=== PATIENT | male | born 1945 | race Caucasian/White ===

== ENCOUNTER 2017-04-05 20:53 | Inpatient (IN) | payer OTHER ==
[~2017-04-05] VITALS: Ht 180.3 cm; Wt 103.5 kg
[2017-04-05 21:01] VITALS: BP 118/60; PULSE 65; RESP 20; TEMP 97.4; O2SAT 98
[2017-04-05] MEDS ORDERED: gabapentin PO (21:16)
[2017-04-05] MEDS ORDERED: PERC5TAB12 PO (21:16)
--- NOTE | 2017-04-05 21:29 | PD ---
HPI Chief Complaint: Neuro Symptoms/ Deficits Time Seen by Provider: 21:03 Travel History International Travel<30 days: No Contact w/Intl Traveler<30days: No Traveled to known affect area: No History of Present Illness HPI This is a 71-year-old male who was at a bar drinking Pepsi when he started to have shaking of his arms and tremor. He says he's never had this happen before. The symptoms are constant and lasted for about an hour and hour now improving. He did not pass out, lose his bowels or bladder or have any other symptoms. He does have severe diabetic neuropathy for which he takes Percocet and gabapentin. He has had a stroke in the past. PFSH Past Medical History Cardiac Catheterization: Yes COPD: Yes Cerebrovascular Accident: Yes Diabetes: Yes Patient Takes Glucophage: Yes (pt unsure) Hypertension: Yes Tetanus Vaccination: < 5 Years Influenza Vaccination: Yes Past Surgical History Tonsillectomy: Yes Other Surgery: Yes (vein striping) Social History Alcohol Use: No Tobacco Use: Yes Substance Use: No Allergies-Medications (Allergen,Severity, Reaction): Coded Allergies: No Known Allergies (Unverified , 04/05/17) Reported Meds & Prescriptions Reported Meds & Active Scripts Active Reported [unknown] [gabapentin] 1 Tab PO TID Percocet (Oxycodone-Acetaminophen) 5-325 mg Tab 1 Tab PO Q4H PRN Review of Systems Except as stated in HPI: all other systems reviewed are Neg Physical Exam Narrative GENERAL:Well appearing, no acute distress SKIN: Focused skin assessment warm and dry. HEAD: Atraumatic. Normocephalic. EYES: Pupils equal and round. No injection or drainage. ENT: Moist mucous membranes NECK: Trachea midline. CARDIOVASCULAR: Regular rate and rhythm. No murmur appreciated. RESPIRATORY: Clear to auscultation. Breath sounds equal bilaterally. GASTROINTESTINAL: Abdomen soft, non-tender, nondistended. MUSCULOSKELETAL: No obvious deformities. NEUROLOGICAL: Awake and alert. No obvious cranial nerve deficits. No dysarthria or aphasia. No upper or lower extremity drift. No upper extremity ataxia. Visual guerrero intact. PSYCHIATRIC: Appropriate mood and affect; insight and judgment normal. Data Data Last Documented VS Vital Signs Date Time Temp Pulse Resp B/P (MAP) Pulse Ox O2 Delivery O2 Flow Rate FiO2 04/06/17 00:30 68 18 121/68 (85) 96 Room Air 04/05/17 21:01 97.4 Orders Orders Complete Blood Count With Diff (04/05/17 21:09) Comprehensive Metabolic Panel (04/05/17 21:09) ^ Insert Iv (04/05/17 21:09) Magnesium (Mg) (04/05/17 21:09) Alcohol (Ethanol) (04/05/17 21:09) Oxycodone-Acetamin 5-325 Mg (Percocet (04/05/17 21:30) Prothrombin Time / Inr (Pt) (04/05/17 23:52) Ct Brain W/O Iv Contrast(Rout) (04/05/17 ) Sodium Chlorid 0.9% 500 Ml Inj (Ns 500 M (04/06/17 00:00) Urinalysis - C+S If Indicated (04/06/17 01:08) Admit Order (Ed Use Only) (04/06/17 01:12) Labs Laboratory Tests Test 04/05/17 21:15 04/05/17 23:59 White Blood Count 10.0 TH/MM3 Red Blood Count 4.19 MIL/MM3 Hemoglobin 12.0 GM/DL Hematocrit 35.6 % Mean Corpuscular Volume 85.0 FL Mean Corpuscular Hemoglobin 28.6 PG Mean Corpuscular Hemoglobin Concent 33.6 % Red Cell Distribution Width 15.8 % Platelet Count 174 TH/MM3 Mean Platelet Volume 9.2 FL Neutrophils (%) (Auto) 69.7 % Lymphocytes (%) (Auto) 19.1 % Monocytes (%) (Auto) 8.7 % Eosinophils (%) (Auto) 1.8 % Basophils (%) (Auto) 0.7 % Neutrophils # (Auto) 7.0 TH/MM3 Lymphocytes # (Auto) 1.9 TH/MM3 Monocytes # (Auto) 0.9 TH/MM3 Eosinophils # (Auto) 0.2 TH/MM3 Basophils # (Auto) 0.1 TH/MM3 CBC Comment DIFF FINAL Differential Comment Blood Urea Nitrogen 47 MG/DL Creatinine 2.00 MG/DL Random Glucose 87 MG/DL Total Protein 7.6 GM/DL Albumin 3.0 GM/DL Calcium Level 8.1 MG/DL Magnesium Level 2.0 MG/DL Alkaline Phosphatase 122 U/L Aspartate Amino Transf (AST/SGOT) 28 U/L Alanine Aminotransferase (ALT/SGPT) 24 U/L Total Bilirubin 0.4 MG/DL Sodium Level 138 MEQ/L Potassium Level 3.8 MEQ/L Chloride Level 104 MEQ/L Carbon Dioxide Level 27.0 MEQ/L Anion Gap 7 MEQ/L Estimat Glomerular Filtration Rate 33 ML/MIN Ethyl Alcohol Level LESS THAN 3 MG/DL Prothrombin Time 30.2 SEC Prothromb Time International Ratio 2.6 RATIO MDM Medical Decision Making Medical Screen Exam Complete: Yes Emergency Medical Condition: Yes Medical Record Reviewed: Yes (records were obtained from outside hospital demonstrating from 03/02/17 a BUN of 9 and a creatinine of 0.8) Interpretation(s) No leukocytosis Acute renal insufficiency with a BUN of 47 and a creatinine of 2 (baseline creatinine .8 from outside hospital records in February) GFR is 33 reduced from 90 on 03/02/17 Alcohols negative Urinalysis is negative for infection INR is 2.6 CT head: Remote MCA infarct with no acute intracranial hemorrhage Differential Diagnosis essential tremor, seizure, electrolyte abnormality Narrative Course This is a 71-year-old male who presents to the emergency Department with onset of a tremor about an hour prior to arrival. He has no other symptoms. He is a very poor historian. Labs are obtained which demonstrate acute renal insufficiency with a creatinine of 2 compared to 0.8 month ago. I suspect the patient is dehydrated. He was given IV hydration and will be admitted for acute kidney injury Physician Communication Physician Communication Discussed with Dr. Arreaga Diagnosis Primary Impression: CLEMENTINA (acute kidney injury) Admitting Information Admitting Physician Requests: Admit Yajiara Luu MD Apr 05, 2017 21:29
[2017-04-05] MEDS ORDERED: oxyCODONE/ACETAMINOPHEN 5 MG/325 MG TAB PO ONE (21:30)
[2017-04-05 22:02] VITALS: BP 108/56; PULSE 64; RESP 18; O2SAT 96
[2017-04-05 22:24] LABS: BASOPHIL # 0.1 TH/MM3 (0-0.2); BASOPHIL % 0.7 % (0.0-2.0); EOSINOPHIL # 0.2 TH/MM3 (0-0.4); EOSINOPHIL % 1.8 % (0.0-4.0); HEMATOCRIT 35.6 % (39.0-51.0); HEMO FLAGS DIFF FINAL; LYMPH % 19.1 % (9.0-44.0); LYMPHOCYTE # 1.9 TH/MM3 (1.0-4.8); MEAN CORPUSCULAR HEMOGLOBIN 28.6 PG (27.0-34.0); MEAN CORPUSCULAR HGB CONC 33.6 % (32.0-36.0); MONO % 8.7 % (0.0-8.0); NEUT % 69.7 % (16.0-70.0); PLATELET COUNT 174 TH/MM3 (150-450); RED BLOOD COUNT 4.19 MIL/MM3 (4.50-5.90); RED CELL DISTRIBUTION WIDTH 15.8 % (11.6-17.2)
[2017-04-05 22:42] LABS: ANION GAP 7 MEQ/L (5-15); AST (GOT) 28 U/L (15-37); BLOOD UREA NITROGEN 47 MG/DL (7-18); CHLORIDE 104 MEQ/L (98-107); GLOMERULAR FILTRATION RATE 33 ML/MIN (>89); POTASSIUM 3.8 MEQ/L (3.5-5.1); SODIUM (NA) 138 MEQ/L (136-145)
[2017-04-05 22:43] LABS: ALT (GPT) 24 U/L (12-78)
[2017-04-05 22:45] LABS: ALKALINE PHOSPHATASE 122 U/L (45-117); TOTAL BILIRUBIN ADULT 0.4 MG/DL (0.2-1.0)
[2017-04-05 22:51] LABS: ALCOHOL LESS THAN 3 MG/DL (0-5)
[2017-04-05 23:14] VITALS: BP 123/65; PULSE 63; RESP 18; O2SAT 97
[2017-04-06] VITALS (8 sets, daily range): BP systolic 108–144; BP diastolic 57–73; PULSE 62–95; RESP 18; TEMP 95.5–98.2; O2SAT 92–96
[2017-04-06] MEDS ORDERED: SODIUM CHLORID 0.9% 500 ML INJ 500 ML IV ONE
--- NOTE | 2017-04-06 00:31 | RADRPT ---
EXAM DATE/TIME: 04/06/2017 00:12 [facility] COMPARISON: No previous studies available for comparison. INDICATIONS : Tremors. RADIATION DOSE: 56.35 CTDIvol (mGy) MEDICAL HISTORY : Cerebrovascular disease. Hypertension. Diabetes mellitus type 2. SURGICAL HISTORY : None. ENCOUNTER: Initial ACUITY: 1 day PAIN SCALE: 0/10 LOCATION: cranial TECHNIQUE: Multiple contiguous axial images were obtained of the head. Using automated exposure control and adj ustment of the mA and/or kV according to patient size, radiation dose was kept as low as reasonably a chievable to obtain optimal diagnostic quality images. DICOM format image data is available electro nically for review and comparison. FINDINGS: CEREBRUM: There is a remote left middle cerebral artery distribution infarct with encephalomalacia. No acute in farct identified. POSTERIOR FOSSA: The cerebellum and brainstem are intact. The 4th ventricle is midline. The cerebellopontine angle i s unremarkable. EXTRACRANIAL: The visualized portion of the orbits is intact. SKULL: The calvaria is intact. No evidence of skull fracture. CONCLUSION: 1. Remote left MCA distribution infarct with encephalomalacia. No acute findings. Travon Al MD on April 06, 2017 at 0:27 Board Certified Radiologist. This report was verified electronically.
[2017-04-06 00:34] LABS: INTERNATIONAL NORMALIZED RATIO 2.6 RATIO; PROTHROMBIN TIME - PATIENT 30.2 SEC (9.8-11.6)
[2017-04-06] MEDS ORDERED: ACETAMINOPHEN 325 MG TAB PO PRN (01:30)
[2017-04-06] MEDS ORDERED: ACETAMINOPHEN/HYDROcodone 325 MG/5 MG TAB PO PRN (01:30)
[2017-04-06] MEDS ORDERED: SENNOSIDES 8.6 MG TAB PO PRN (01:30)
[2017-04-06] MEDS ORDERED: BISACODYL 10 MG SUPP RECTAL PRN (01:30)
[2017-04-06] MEDS ORDERED: SODIUM CHLORIDE 0.9% FLUSH 10 ML FLUSH IV FLUSH PRN (01:30)
[2017-04-06] MEDS ORDERED: MAGNESIUM HYDROXIDE SUSP 30 ML CUP PO PRN (01:30)
[2017-04-06] MEDS ORDERED: ONDANSETRON HCL 4 MG/2 ML VIAL IVP PRN (01:30)
[2017-04-06] MEDS ORDERED: LACTULOSE SYRUP 20 GM/30 ML CUP PO PRN (01:30)
--- NOTE | 2017-04-06 01:31 | HHI.HP ---
[facility] Primary Care Physician [facility] Admission Diagnosis acute renal insufficiency Diagnoses: (1) CLEMENTINA (acute kidney injury) Diagnosis: Principal (2) Tremor Diagnosis: Principal (3) Chronic anticoagulation Diagnosis: Principal Travel History International Travel<30 Days: No Contact w/Intl Traveler <30 Da: No Traveled to Known Affected Are: No History of Present Illness This is a 71-year-old male with a PMH of HTN, COPD, DM, CVA and Chronic Anticoagulation on Coumadin who was brought to the ER by EMS secondary to acute onset of bilateral upper extremity tremors. Patient is a poor historian, however states he was drinking Pepsi at a bar when he had sudden onset of bilateral upper extremity tremors, reportedly lasting approximately one hour. Tremors witnessed by EMS. No history of similar symptoms in the past. Denies any recent fever, chills or sick contacts. No lid lag, facial droop, slurred speech or weakness. Denies any history of Parkinson's. On arrival, BP 108/56, HR 64, O2 sat 98% on RA, Afebrile. CBC unremarkable except for anemia, hemoglobin 12.0. Creatinine 2.00, no previous records in our system, however records from from 3wks ago w/ Creatinine 0.8. INR 2.6. Alcohol is negative. CT Head with remote left MCA infarct and encephalomalacia, no acute findings. Tremor currently resolved. Review of Systems Except as stated in HPI: all other systems reviewed are Neg ROS: 14 point review of systems otherwise negative. Past Family Social History Past Medical History PMH: HTN, COPD, DM, CVA and Chronic Anticoagulation on Coumadin Past Surgical History PAST SURGICAL HISTORY: Tonsillectomy, Vein Stripping Allergies: Coded Allergies: No Known Allergies (Unverified , 04/05/17) Family History PAST FAMILY HISTORY: Reviewed. No h/o DM or CAD Social History PAST SOCIAL HISTORY: Negative for alcohol or drugs. Positive for tobacco. Physical Exam Vital Signs Vital Signs Date Time Temp Pulse Resp B/P (MAP) Pulse Ox O2 Delivery O2 Flow Rate FiO2 04/05/17 23:14 63 18 123/65 (84) 97 Room Air 04/05/17 22:02 64 18 108/56 (73) 96 Room Air 04/05/17 21:01 97.4 65 20 118/60 (79) 98 Physical Exam PE: GENERAL: Elderly white male in no acute distress. HEENT: PERRLA, EOMI. No scleral icterus or conjunctival pallor. No lid lag or facial droop. CARDIOVASCULAR: Regular rate and rhythm. No obvious murmurs to auscultation. No chest tenderness to palpation. RESPIRATORY: No obvious rhonchi or wheezing. Clear to auscultation. Breath sounds equal bilaterally. GASTROINTESTINAL: Abdomen soft, non-tender, nondistended. BS normal. MUSCULOSKELETAL: Extremities without clubbing, cyanosis, or edema. No obvious deformities. NEUROLOGICAL: Awake, alert and oriented x4. No focal neurologic deficits. Moving both upper and lower extremities spontaneously. Laboratory Laboratory Tests Test 04/05/17 21:15 04/05/17 23:59 White Blood Count 10.0 Red Blood Count 4.19 Hemoglobin 12.0 Hematocrit 35.6 Mean Corpuscular Volume 85.0 Mean Corpuscular Hemoglobin 28.6 Mean Corpuscular Hemoglobin Concent 33.6 Red Cell Distribution Width 15.8 Platelet Count 174 Mean Platelet Volume 9.2 Neutrophils (%) (Auto) 69.7 Lymphocytes (%) (Auto) 19.1 Monocytes (%) (Auto) 8.7 Eosinophils (%) (Auto) 1.8 Basophils (%) (Auto) 0.7 Neutrophils # (Auto) 7.0 Lymphocytes # (Auto) 1.9 Monocytes # (Auto) 0.9 Eosinophils # (Auto) 0.2 Basophils # (Auto) 0.1 CBC Comment DIFF FINAL Differential Comment Blood Urea Nitrogen 47 Creatinine 2.00 Random Glucose 87 Total Protein 7.6 Albumin 3.0 Calcium Level 8.1 Magnesium Level 2.0 Alkaline Phosphatase 122 Aspartate Amino Transf (AST/SGOT) 28 Alanine Aminotransferase (ALT/SGPT) 24 Total Bilirubin 0.4 Sodium Level 138 Potassium Level 3.8 Chloride Level 104 Carbon Dioxide Level 27.0 Anion Gap 7 Estimat Glomerular Filtration Rate 33 Ethyl Alcohol Level LESS THAN 3 Prothrombin Time 30.2 Prothromb Time International Ratio 2.6 Result Diagram: 04/05/17211404/05/172114 Caprini VTE Risk Assessment Caprini VTE Risk Assessment: Mod/High Risk (score >= 2) Caprini Risk Assessment Model Point Value = 1 Point Value = 2 Point Value = 3 Point Value = 5 Age 41-60 Minor surgery BMI > 25 kg/m2 Swollen legs Varicose veins or History of unexplained or recurrent spontaneous Oral contraceptives or hormone replacement Sepsis (< 1 month) Serious lung disease, including pneumonia (< 1 month) Abnormal pulmonary function Acute myocardial infarction Congestive heart failure (< 1 month) History of inflammatory bowel disease Medical patient at bed rest Age 61-74 Arthroscopic surgery Major open surgery (> 45 min) Laparoscopic surgery (> 45 min) Malignancy Confined to bed (> 72 hours) Immobilizing plaster cast Central venous access Age >= 75 History of VTE Family history of VTE Factor V Leiden Prothrombin [id number] Lupus anticoagulant Anticardiolipin antibodies Elevated serum homocysteine Heparin-induced thrombocytopenia Other congenital or acquired thrombophilia Stroke (< 1 month) Elective arthroplasty Hip, pelvis, or leg fracture Acute spinal cord injury (< 1 month) Prophylaxis Regimen Total Risk Factor Score Risk Level Prophylaxis Regimen 0-1 Low Early ambulation 2 Moderate Order ONE of the following: *Sequential Compression Device (SCD) *Heparin 5000 units SQ BID 3-4 Higher Order ONE of the following medications: *Heparin 5000 units SQ TID *Enoxaparin/Lovenox 40 mg SQ daily (WT < 150 kg, CrCl > 30 mL/min) *Enoxaparin/Lovenox 30 mg SQ daily (WT < 150 kg, CrCl > 10-29 mL/min) *Enoxaparin/Lovenox 30 mg SQ BID (WT < 150 kg, CrCl > 30 mL/min) AND/OR *Sequential Compression Device (SCD) 5 or more Highest Order ONE of the following medications: *Heparin 5000 units SQ TID (Preferred with Epidurals) *Enoxaparin/Lovenox 40 mg SQ daily (WT < 150 kg, CrCl > 30 mL/min) *Enoxaparin/Lovenox 30 mg SQ daily (WT < 150 kg, CrCl > 10-29 mL/min) *Enoxaparin/Lovenox 30 mg SQ BID (WT < 150 kg, CrCl > 30 mL/min) AND *Sequential Compression Device (SCD) Assessment and Plan Problem List: (1) CLEMENTINA (acute kidney injury) ICD Code: N17.9 - Acute kidney failure, unspecified (2) Tremor ICD Code: R25.1 - Tremor, unspecified (3) Chronic anticoagulation ICD Code: Z79.01 - [facility] (current) use of anticoagulants Assessment and Plan A/P: 1. CLEMENTINA: Creatinine 2.0, previous records from approx 3wks ago w/ Creatinine 0.8. Check U/a, IVF for hydration, repeat labs in am. 2. Tremor: Now resolved. Possibly physiologic tremor exacerbated by caffeine/ nicotine intake? Will monitor. Neuro checks. Propranolol if needed, Consult Neurology if symptoms recurrent. 3. Chronic Anticoagulation: On Coumadin, presumably secondary to h/o CVA. INR therapeutic at 2.6. Repeat INR in am. 4. DVT Prophylaxis: On Coumadin 5. Social work for d/c planning as needed. 6. Case discussed w/ ER physician at length. Physician Certification 2 Midnight Certification Type: Admission for Inpatient Services Order for Inpatient Services The services are ordered in accordance with Medicare regulations or non- Medicare payer requirements, as applicable. In the case of services not specified as inpatient-only, they are appropriately provided as inpatient services in accordance with the 2-midnight benchmark. Estimated LOS (days): 2 days is the estimated time the patient will need to remain in the hospital, assuming treatment plan goals are met and no additional complications. Post-Hospital Plan: Not yet determined Keri Dick MD Apr 06, 2017 01:31
[2017-04-06] MEDS: SODIUM CHLOR 0.9% 1000 ML INJ 1,000 ML IV SCH ×3 (01:46→21:16)
[2017-04-06 02:16] LABS: BLOOD, URINE NEG (NEG); COMMENT (UR) CULT NOT INDICATED; CULTURE IF INDICATED CULT NOT INDICATED; GLUCOSE,URINE NEG (NEG); HYALINE CAST, URINE 43 /lpf (RARE); KETONE, URINE NEG (NEG); MUCUS URINE FEW /lpf (OCC); NITRITE,URINE NEG (NEG); PH, URINE 5.5 (5.0-8.5); URINE COLOR YELLOW (YELLW/STRAW)
--- NOTE | 2017-04-06 02:23 | RADRPT ---
EXAM DATE/TIME: 04/06/2017 01:58 [facility] COMPARISON: No previous studies available for comparison. INDICATIONS : Chest pain and weakness MEDICAL HISTORY : Chronic obstructive pulmonary disease. Hypertension TIA SURGICAL HISTORY : Tonsillectomy. ENCOUNTER: Initial ACUITY: 1 day PAIN SCORE: 6/10 LOCATION: Bilateral chest FINDINGS: There is mild cardiomegaly. Minimal basilar atelectasis. No consolidation or effusion. No pneumothora x. No acute bony abnormality. CONCLUSION: 1. Cardiomegaly with minimal basilar atelectasis. Travon Al MD on April 06, 2017 at 2:20 Board Certified Radiologist. This report was verified electronically.
[2017-04-06] MEDS: ACETAMINOPHEN/HYDROcodone 325 MG/10 MG TAB PO PRN ×4 (03:13→21:20)
[2017-04-06] MEDS: DOCUSATE SODIUM 50 MG/SENNA 8.6 MG TAB PO SCH ×2 (09:51→21:00)
[2017-04-06] MEDS: SODIUM CHLORIDE 0.9% FLUSH 10 ML FLUSH IV FLUSH SCH ×2 (09:52→21:20)
--- NOTE | 2017-04-06 11:40 | EKG ---
Date Performed: 04/05/2017 Time Performed: 21:02:51 PTAGE: 71 years EKG: Sinus rhythm RIGHT BUNDLE BRANCH BLOCK LEFT ANTERIOR FASCICULAR BLOCK ABNORMAL ECG NO PREVIOUS TRACING DOCTOR: Michael Lee Interpretating Date/Time 04/06/2017 11:37:53
[2017-04-06] MEDS ORDERED: Vancomycin Consult Pharmacy 1 EA OTHER SCH (13:45)
[2017-04-06] MEDS: PIPERACIL-TAZO 3.375 GM PREMIX 50 ML IV SCH ×2 (17:25→21:20)
--- NOTE | 2017-04-06 17:31 | RADRPT ---
EXAM DATE/TIME: 04/06/2017 16:59 [facility] COMPARISON: No previous studies available for comparison. INDICATIONS : Right foot pain and inflammation. MEDICAL HISTORY : Cerebrovascular disease. Hypertension. Diabetes mellitus type 2. SURGICAL HISTORY : None. ENCOUNTER: Initial ACUITY: 1 day PAIN SCORE: 5/10 LOCATION: Right foot. FINDINGS: Diffuse severe osteopenia. There is deformity of the tarsal/metatarsal row with bony hypertrophy, mu ltiple areas of fusion and some mild dorsal dislocation of the metatarsals with respect to the proxim al tarsal row. There also healed fractures of the distal 3rd metatarsals, midshaft of the 5th metata rsus and proximal metaphysis of the 2nd and 4th proximal phalanges. There is loss of the midfoot arc h. Large plantar calcaneal spur. Vascular calcifications. CONCLUSION: Midfoot deformities with multiple osseous lesions and multiple healed fractures. No focal areas of b desiree destruction and no definite acute findings. Rodolfo Apple MD on April 06, 2017 at 17:28 Board Certified Radiologist. This report was verified electronically.
--- NOTE | 2017-04-06 17:38 | PD.ID.CON ---
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 No h/o DM or CAD Social History Negative for drugs. Positive for tobacco. Quit ETOH recently Physical Exam Vital Signs Vital Signs Date Time Temp Pulse Resp B/P (MAP) Pulse Ox O2 Delivery O2 Flow Rate FiO2 04/06/17 11:19 95.7 64 18 121/68 (85) 93 04/06/17 07:35 98.2 95 18 108/57 (74) 93 04/06/17 03:00 95.6 63 18 123/70 (87) 92 04/06/17 02:13 68 18 138/69 (92) 94 04/06/17 02:08 Room Air 04/06/17 01:35 62 18 115/61 (79) 96 04/06/17 00:30 68 18 121/68 (85) 96 Room Air 04/05/17 23:14 63 18 123/65 (84) 97 Room Air 04/05/17 22:02 64 18 108/56 (73) 96 Room Air 04/05/17 21:01 97.4 65 20 118/60 (79) 98 Physical Exam CONSTITUTIONAL/GENERAL: This is an obese ulcerly patient, in no apparent distress. TUBES/LINES/DRAINS: SKIN: No jaundice, rashes, or lesions. . Skin temperature appropriate. Not diaphoretic. HEAD: Atraumatic. Normocephalic. EYES: Pupils equal and round and reactive. Extraocular motions intact. No scleral icterus. No injection or drainage. Fundi not examined. ENT: Hearing grossly normal. Nose without bleeding or purulent drainage. Throat without visible erythema, exudates, masses, or lesions. NECK: Trachea midline. Supple, nontender. CARDIOVASCULAR: Regular rate and rhythm without murmurs, gallops, or rubs. No JVD. Peripheral pulses symmetric. RESPIRATORY/CHEST: Symmetric, unlabored respirations. Clear to auscultation. Breath sounds equal bilaterally. No wheezes, rales, or rhonchi. GASTROINTESTINAL: Abdomen soft, non-tender, distended. No hepato-splenomegaly, or palpable masses. No guarding. Bowel sounds present. GENITOURINARY: Without palpable bladder distension. MUSCULOSKELETAL: Extremities without clubbing, cyanosis, + L foot edematous with rocker bottom deformity + planatr ulcer with odorless small amount serous drainage No joint tenderness or effusion noted. No calf tenderness. No mottling or clubbing. LYMPHATICS: No inguinal or supraclavicular adenopathy. NEUROLOGICAL: Awake and alert. Motor and sensory grossly within normal limits. Follows commands. Clear speech Moves all extremities. No tremors PSYCHIATRIC: No obvious anxiety/depression. no apparent hallucinations or other psychotic thought process. Laboratory Laboratory Tests Test 04/05/17 21:15 04/05/17 23:59 04/06/17 01:38 04/06/17 01:45 White Blood Count 10.0 Red Blood Count 4.19 Hemoglobin 12.0 Hematocrit 35.6 Mean Corpuscular Volume 85.0 Mean Corpuscular Hemoglobin 28.6 Mean Corpuscular Hemoglobin Concent 33.6 Red Cell Distribution Width 15.8 Platelet Count 174 Mean Platelet Volume 9.2 Neutrophils (%) (Auto) 69.7 Lymphocytes (%) (Auto) 19.1 Monocytes (%) (Auto) 8.7 Eosinophils (%) (Auto) 1.8 Basophils (%) (Auto) 0.7 Neutrophils # (Auto) 7.0 Lymphocytes # (Auto) 1.9 Monocytes # (Auto) 0.9 Eosinophils # (Auto) 0.2 Basophils # (Auto) 0.1 CBC Comment DIFF FINAL Differential Comment Blood Urea Nitrogen 47 Creatinine 2.00 Random Glucose 87 Total Protein 7.6 Albumin 3.0 Calcium Level 8.1 Magnesium Level 2.0 Alkaline Phosphatase 122 Aspartate Amino Transf (AST/SGOT) 28 Alanine Aminotransferase (ALT/SGPT) 24 Total Bilirubin 0.4 Sodium Level 138 Potassium Level 3.8 Chloride Level 104 Carbon Dioxide Level 27.0 Anion Gap 7 Estimat Glomerular Filtration Rate 33 Ethyl Alcohol Level LESS THAN 3 Prothrombin Time 30.2 Prothromb Time International Ratio 2.6 Urine Color YELLOW Urine Turbidity CLEAR Urine pH 5.5 Urine Specific [place] 1.022 Urine Protein 100 Urine Glucose (UA) NEG Urine Ketones NEG Urine Occult Blood NEG Urine Nitrite NEG Urine Bilirubin NEG Urine Urobilinogen 2.0 Urine Leukocyte Esterase NEG Urine RBC 1 Urine WBC 1 Urine Hyaline Casts 43 Urine Mucus FEW Microscopic Urinalysis Comment CULT NOT INDICATED B-Type Natriuretic Peptide 59 Result Diagram: 04/05/17211404/05/172114 Imaging Last Impressions Chest X-Ray 04/06/17 0000 Signed Impressions: Service Date/Time: Thursday, April 06, 2017 01:58 - CONCLUSION: 1. Cardiomegaly with minimal basilar atelectasis. Travon Al MD Head CT 04/05/17 0000 Signed Impressions: Service Date/Time: Thursday, April 06, 2017 00:12 - CONCLUSION: 1. Remote left MCA distribution infarct with encephalomalacia. No acute findings. Travon Al MD Assessment and Plan Assessment and Plan R foot DFI vs Scharko ulcer DM Heavy tobacco rec's: cont abx foot MRI agree with podiatry consult Discussed Condition With Dr Dorene Villa,Julia Khalil MD Apr 06, 2017 17:38
[2017-04-06] MEDS: VANCOMYCIN INJ 1,500 MG in SODIUM CHLORID 0.9% 500 ML INJ 500 ML IV SCH (19:35)
[2017-04-06 21:40] LABS: BASOPHIL % 0.6 % (0.0-2.0); EOSINOPHIL # 0.2 TH/MM3 (0-0.4); EOSINOPHIL % 2.4 % (0.0-4.0); HEMATOCRIT 33.3 % (39.0-51.0); HEMO FLAGS DIFF FINAL; LYMPHOCYTE # 0.9 TH/MM3 (1.0-4.8); MEAN CELL VOLUME 84.4 FL (80.0-100.0); MEAN CORPUSCULAR HEMOGLOBIN 28.8 PG (27.0-34.0); MEAN CORPUSCULAR HGB CONC 34.1 % (32.0-36.0); MONO % 8.7 % (0.0-8.0); NEUT % 74.3 % (16.0-70.0); PLATELET COUNT 141 TH/MM3 (150-450); RED BLOOD COUNT 3.95 MIL/MM3 (4.50-5.90); RED CELL DISTRIBUTION WIDTH 15.2 % (11.6-17.2); WHITE BLOOD COUNT 6.7 TH/MM3 (4.0-11.0)
[2017-04-06 22:09] LABS: BICARBONATE 25.6 MEQ/L (21.0-32.0); POTASSIUM 4.5 MEQ/L (3.5-5.1); WESTERGREN SEDIMENTATION RATE 48 mm/hr (0-20)
[2017-04-06] MEDS ORDERED: DEXTROSE 50% IN WATER 50 ML VIAL(D50) IV PUSH PRN (23:15)
[2017-04-06] MEDS ORDERED: GLUCAGON 1 MG/ML VIAL OTHER PRN (23:15)
[2017-04-07] VITALS: BP 150/77; PULSE 69; RESP 18; TEMP 96.1; O2SAT 94
[2017-04-07] MEDS ORDERED: ZOLPIDEM TARTRATE 5 MG TAB PO ONE (00:30)
[2017-04-07] MEDS: SODIUM CHLOR 0.9% 1000 ML INJ 1,000 ML IV SCH ×2 (00:47→16:28)
[2017-04-07] MEDS: PIPERACIL-TAZO 3.375 GM PREMIX 50 ML IV SCH ×2 (03:05→09:29)
[2017-04-07 04:00] VITALS: BP 149/77; PULSE 91; RESP 18; TEMP 96.3; O2SAT 93
[2017-04-07] MEDS: VANCOMYCIN INJ 1,500 MG in SODIUM CHLORID 0.9% 500 ML INJ 500 ML IV SCH (04:58)
[2017-04-07] MEDS: ACETAMINOPHEN/HYDROcodone 325 MG/10 MG TAB PO PRN ×4 (05:00→21:26)
[2017-04-07 06:37] LABS: INTERNATIONAL NORMALIZED RATIO 2.1 RATIO; PROTHROMBIN TIME - PATIENT 23.9 SEC (9.8-11.6)
[2017-04-07 06:47] LABS: ANION GAP 3 MEQ/L (5-15); AST (GOT) 25 U/L (15-37); BICARBONATE 27.6 MEQ/L (21.0-32.0); BLOOD UREA NITROGEN 19 MG/DL (7-18); CHLORIDE 109 MEQ/L (98-107); GLOMERULAR FILTRATION RATE 69 ML/MIN (>89); POTASSIUM 3.9 MEQ/L (3.5-5.1); SODIUM (NA) 140 MEQ/L (136-145)
[2017-04-07 06:50] LABS: ALKALINE PHOSPHATASE 115 U/L (45-117); ALT (GPT) 24 U/L (12-78); TOTAL BILIRUBIN ADULT 0.5 MG/DL (0.2-1.0)
[2017-04-07 06:52] LABS: AUTOMATED NEUTROPHIL # 4.3 TH/MM3 (1.8-7.7); BASOPHIL # 0.1 TH/MM3 (0-0.2); BASOPHIL % 0.9 % (0.0-2.0); EOSINOPHIL # 0.2 TH/MM3 (0-0.4); EOSINOPHIL % 3.2 % (0.0-4.0); HEMATOCRIT 35.3 % (39.0-51.0); HEMO FLAGS DIFF FINAL; LYMPH % 19.2 % (9.0-44.0); LYMPHOCYTE # 1.2 TH/MM3 (1.0-4.8); MEAN CELL VOLUME 84.5 FL (80.0-100.0); MEAN CORPUSCULAR HEMOGLOBIN 28.9 PG (27.0-34.0); MEAN CORPUSCULAR HGB CONC 34.1 % (32.0-36.0); MONO % 8.5 % (0.0-8.0); NEUT % 68.2 % (16.0-70.0); PLATELET COUNT 133 TH/MM3 (150-450); RED BLOOD COUNT 4.18 MIL/MM3 (4.50-5.90); RED CELL DISTRIBUTION WIDTH 15.3 % (11.6-17.2); WHITE BLOOD COUNT 6.3 TH/MM3 (4.0-11.0)
[2017-04-07 07:35] VITALS: BP 156/74; PULSE 74; RESP 18; TEMP 95.6; O2SAT 93
[2017-04-07] MEDS ORDERED: GADODIAMIDE PF 287 MG/ML 20 ML VIAL (for RAD MRI) IVCONTRAST ONE (08:34)
--- NOTE | 2017-04-07 09:18 | RADRPT ---
EXAM DATE/TIME: 04/07/2017 08:18 [facility] COMPARISON: FOOT RIGHT COMPLETE ([id number]), April 06, 2017, 16:59. INDICATIONS : Pain and swelling with wound to right foot. CONTRAST: 20 cc Omniscan (gadodiamide) IV MEDICAL HISTORY : Renal insufficiency. Hypertension. Diabetes mellitus type 2. CVA SURGICAL HISTORY : Tonsillectomy. Bilateral hip replacements. Cardiac stents. ENCOUNTER: Initial ACUITY: 2 day PAIN SCORE: 3/10 LOCATION: Right foot. TECHNIQUE: Multiplanar, multisequence MRI examination was performed without contrast and after the intravenous a dministration of gadolinium. FINDINGS: BONE/CARTILAGE: There is marrow edema identified within the base of the first digit proximal phalanx there are fractu re lines identified on the T1 nonfat suppressed sequence extending to the MTP joint. There is preserv ed fatty marrow identified within the proximal phalanx. This area does demonstrate enhancement after the administration of contrast the remainder of the marrow demonstrates normal signal. TENDONS: All of the visualized tendons are intact. MISCELLANEOUS: Plantar aponeurosis is intact. Sinus tarsi is within normal limits. Diffuse subcutaneous edema. Ther e is a focal area of low T1 and T2 signal identified along the plantar aspect of the midfoot at the b ase of the metatarsals. No abnormal enhancement within this region. There is diffuse edema identified throughout the subcutaneous soft tissues. POST-CONTRAST: Focal enhancement identified within the region of fracture involving the first digit base of the prox imal phalanx. CONCLUSION: Focal marrow edema and enhancement involving the first digit a sub-proximal phalanx at the site of an acute fracture. No findings are seen to suggest osteomyelitis.. Tanya Funes MD on April 07, 2017 at 9:07 Board Certified Radiologist. This report was verified electronically.
[2017-04-07] MEDS: DOCUSATE SODIUM 50 MG/SENNA 8.6 MG TAB PO SCH ×3 (09:27→21:26)
[2017-04-07] MEDS: INSULIN ASPART SUPPLEMENTAL SCALE SQ SCH ×4 (09:27→21:26)
[2017-04-07] MEDS: SODIUM CHLORIDE 0.9% FLUSH 10 ML FLUSH IV FLUSH SCH ×2 (09:29→21:28)
--- NOTE | 2017-04-07 10:28 | HHI.PR ---
Addendum to Inpatient Note Additional Information MRI negative Gstain neg Pt is afebrile with neg clx dc abx Julia Villa MD Apr 07, 2017 10:28
[2017-04-07 11:18] VITALS: BP 153/76; PULSE 83; RESP 18; TEMP 96.2; O2SAT 93
--- NOTE | 2017-04-07 11:23 | MB ---
cc: ANNA JESUS DPM DATE OF CONSULTATION: 04/07/2017 DATE OF : 1945 REASON FOR CONSULTATION Right foot wound. HISTORY OF PRESENT ILLNESS: The patient is very pleasant 71-year-old gentleman with past medical history of hypertension, COPD, DM, CVA, and PVD. He has a right foot wound for approximately three weeks of unknown etiology, has not been treating it. He sees a physician once every six months. REVIEW OF SYSTEMS Denies nausea, vomiting, fever, diarrhea or chills. PAST MEDICAL HISTORY: Per HPI. PAST SURGICAL HISTORY Tonsillectomy, vein stripping. ALLERGIES NKDA. SOCIAL HISTORY Positive tobacco. Negative for alcohol or drugs. PHYSICAL EXAMINATION Right foot swollen. There is a plantar redness, erythema. There is no active drainage. There is some serous drainage. Plantar mid foot ulceration with fibrotic lesion 1 x 2 cm. No exposed bone or tendon. There is some mid foot collapse, a rocker bottom type foot. DP and PT diminished. Foot is warm to warm proximal to distal, protective sensation grossly diminished. Right foot x-ray with midfoot arthritis and rocker bottom, no cortical erosions noted. This was completed on 04/06/2017. MRI completed 04/07/2017 without any areas of abscess or effusion. ASSESSMENT/PLAN 1. Neuropathy with diabetes 2. Charcot foot. 3. Right plantar mid foot ulcer secondary to a Charcot and diabetic neuropathy. RECOMMENDATIONS The recommendation for this patient is to get some blood flow studies. If they are within normal limits he can be discharged and follow up with Dr. Jesus within one week of discharge. He needed to be offloaded in a walking boot and have some wound care carried out daily for him by home health care. This wound care can include Santyl with dry sterile dressings. He will likely need to update his diabetic shoes with additional molds. This can be done as an outpatient. Thank you for the kind consult. Anna Jesus DPM SR/RONN /10:31 AM /10:53 AM
[2017-04-07 16:00] VITALS: BP 160/82; PULSE 104; RESP 18; TEMP 97.5; O2SAT 94
[2017-04-07 20:56] VITALS: BP 160/82; PULSE 65; RESP 18; TEMP 96.7; O2SAT 96
--- NOTE | 2017-04-07 21:27 | HHI.PR ---
Subjective Remarks Patient seen today around 1 PM. He says that pain is controlled. No tremors. Objective Vital Signs Date Time Temp Pulse Resp B/P (MAP) Pulse Ox O2 Delivery O2 Flow Rate FiO2 04/07/17 16:00 97.5 104 18 160/82 (108) 94 04/07/17 11:18 96.2 83 18 153/76 (101) 93 04/07/17 09:52 Room Air 04/07/17 07:35 95.6 74 18 156/74 (101) 93 04/07/17 04:00 96.3 91 18 149/77 (101) 93 04/07/17 00:00 96.1 69 18 150/77 (101) 94 I/O 04/06/17 04/06/17 04/06/17 04/07/17 04/07/17 04/07/17 07:00 15:00 23:00 07:00 15:00 23:00 Intake Total 1162 ml 720 ml 1335 ml 930 ml 770 ml Output Total 150 ml 275 ml 950 ml 1500 ml Balance 1012 ml 445 ml 385 ml -570 ml 770 ml Intake Oral 240 ml 720 ml 720 ml 480 ml 720 ml IV Total 922 ml 615 ml 450 ml 50 ml Output Urine Total 150 ml 275 ml 950 ml 1500 ml # Voids 4 3 # Bowel Movements 0 0 1 0 1 Result Diagram: 04/07/17 0600 04/07/17 0605 Objective Remarks GENERAL: patient sitting up in bed. Appears comfortable. SKIN: Warm and dry. HEAD: Normocephalic. EYES: No scleral icterus. No injection or drainage. NECK: Supple, trachea midline. No JVD. CARDIOVASCULAR: Regular rate and rhythm without murmurs, gallops, or rubs. RESPIRATORY: Breath sounds equal bilaterally. No accessory muscle use. GASTROINTESTINAL: Abdomen soft, non-tender, nondistended. MUSCULOSKELETAL: No cyanosis, or edema. right foot in boot. BACK: Nontender without obvious deformity. No CVA tenderness. A/P Assessment and Plan ==== 04/07/17 //Right foot diabetic foot ulcer. Discussed with infectious disease. Gram stain negative. This continue antibiotics. Arterial study ordered by podiatry. Can discharge if negative. Follow-up arterial study. //Acute kidney injury resolved. Creatinine 1.06. // [place]: Creatinine 2.0, previous records from approx 3wks ago w/ Creatinine 0.8. Check U/a, IVF for hydration, repeat labs in am. = Resolved. Creatinine 1.06. // Tremor: Now resolved. Possibly physiologic tremor exacerbated by caffeine/ nicotine intake? Will monitor. Neuro checks. Propranolol if needed, Consult Neurology if symptoms recurrent. // Chronic Anticoagulation: On Coumadin, presumably secondary to h/o CVA. INR therapeutic at 2.6. Repeat INR in am. //Right foot diabetic foot ulcer. Discussed with infectious disease. Gram stain negative. This continue antibiotics. Arterial study ordered by podiatry. Can discharge if negative. MRI with bone edema, fracture, however no absolute indication of osteomyelitis. Follow-up arterial study. // DVT Prophylaxis: On Coumadin Discharge Planning pending arterial study.discharge when cleared by podiatry. Margarito Moeller MD Apr 07, 2017 21:27
[2017-04-08] MEDS ORDERED: ZOLPIDEM TARTRATE 5 MG TAB PO ONE ×2 (00:15→20:45)
[2017-04-08 00:25] VITALS: BP 137/61; PULSE 64; RESP 18; TEMP 97; O2SAT 95
[2017-04-08] MEDS: ACETAMINOPHEN/HYDROcodone 325 MG/10 MG TAB PO PRN ×4 (01:26→22:50)
[2017-04-08] MEDS: SODIUM CHLOR 0.9% 1000 ML INJ 1,000 ML IV SCH ×3 (03:16→23:16)
[2017-04-08 04:30] VITALS: BP 161/80; PULSE 86; RESP 18; TEMP 96.9; O2SAT 95
--- NOTE | 2017-04-08 08:06 | RADRPT ---
EXAM DATE/TIME: 04/07/2017 00:00 [facility] COMPARISON: No previous studies available for comparison. INDICATIONS : Right foot wound TECHNIQUE: Five-station segmental examination of the lower extremities was performed. Pulsed-cuff waveform tracings and pressures were recorded. Ankle-brachial indices and toe-brachial indices were calculated. PRESSURES (mmHg): Brachial (arm): Left 143 Lower Thigh: Right CNO >200 Left CNO >200 Calf: Right 83 Left CNO >200 Ankle: Right 140 Left CNO >220 Toe: Right N/A Left 63 MOISES: Right 0.98 Left N/A TBI: Right N/A Left 0.44 PULSED CUFF WAVEFORMS: Demonstrate normal amplitude bilaterally. CONCLUSION: 1. Nondiagnostic evaluation secondary densely calcified vessels. CT angiography of the abdominal aort a and lower extremities is recommended for further evaluation if clinically indicated. Roberto Durant MD on April 08, 2017 at 8:04 Board Certified Radiologist. This report was verified electronically.
[2017-04-08] MEDS: INSULIN ASPART SUPPLEMENTAL SCALE SQ SCH ×4 (08:51→21:00)
[2017-04-08] MEDS: SODIUM CHLORIDE 0.9% FLUSH 10 ML FLUSH IV FLUSH SCH ×2 (08:52→21:00)
[2017-04-08] MEDS: DOCUSATE SODIUM 50 MG/SENNA 8.6 MG TAB PO SCH ×2 (08:52→22:49)
[2017-04-08] MEDS ORDERED: IOHEXOL 350 MG/ML 10 ML VIAL (for RAD DIAG) IVCONTRAST ONE (11:50)
[2017-04-08 12:00] VITALS: BP 166/88; PULSE 66; RESP 18; TEMP 97; O2SAT 93
--- NOTE | 2017-04-08 13:43 | RADRPT ---
EXAM DATE/TIME: 04/08/2017 11:33 [facility] COMPARISON: MRI FOOT RIGHT W & W/O CONTRAST, April 07, 2017, 8:18. INDICATIONS : Bilateral leg pain IV CONTRAST: 92 cc Omnipaque 350 (iohexol) IV RADIATION DOSE: 11.74 CTDIvol (mGy) MEDICAL HISTORY : Cardiovascular disease. Hypertension. Chronic obstructive pulmonary disease. SURGICAL HISTORY : None. ENCOUNTER: Initial ACUITY: 1 day PAIN SCALE: 7/10 LOCATION: Bilateral legs TECHNIQUE: Volumetric scanning was performed using a multi-row detector CT scanner. The data was post processed with a variety of visualization algorithms including full volume maximum intensity projection, multi -planar sliding thin slab reformation, curved planar reformation, and surface rendering techniques. Using automated exposure control and adjustment of the mA and/or kV according to patient size, radiat ion dose was kept as low as reasonably achievable to obtain optimal diagnostic quality images. DICO M format image data is available electronically for review and comparison. FINDINGS: Examination of the lung bases demonstrates no abnormality. No pleural fluid is identified. No pulmona ry nodules are present. The liver and spleen are normal in size and no focal defects are identified. There is air in the biliary tree as well as in the gallbladder which may be related to recent interve ntion. There are multiple stones within the gallbladder without wall thickening or pericholecystic fl uid the largest measuring 8 mm. The pancreas demonstrates no evidence of mass and there is no dilatat ion of the pancreatic duct. There is a large retrocrural node measuring 1.8 cm and the left. The appe arance is nonspecific. The adrenal glands and kidneys appear normal bilaterally. No hydronephrosis or mass lesions are identified. Examination demonstrates an infrarenal abdominal aortic aneurysm measur ing 3.4 cm. Examination of the pelvis demonstrates no evidence of free fluid or pelvic mass. No abnor mc enlarged inguinal or retroperitoneal lymph nodes are present. The bladder is unremarkable. There is a 3.4 cm dominant aortic aneurysm. The renal artery origins are patent bilaterally. The adam ac axis and superior mesenteric artery origins are also patent. There is heavy calcification at the origin of the right common iliac artery with stenosis in the 50-7 0% range. The common femoral artery demonstrates aneurysmal dilatation measuring 10 mm. There is a pa tent heavily calcified right femoral popliteal bypass graft. The distal anastomosis and outflow are p oorly evaluated Examination of the left lower extremity demonstrates no evidence of inflow stenosis. The common femor al artery is patent. A patent femoral-popliteal bypass graft is present with dense calcification of t he infrapopliteal vessels limiting evaluation. CONCLUSION: 1. Possible inflow stenosis on the right involving the right common iliac artery. Distal runoff is no t evaluated secondary dense calcification of the bypass itself is intact. 2. Nonspecific retrocrural adenopathy. PET/CT scan is recommended to further evaluation if clinically indicated. 3. Cholelithiasis Roberto Durant MD on April 08, 2017 at 13:30 Board Certified Radiologist. This report was verified electronically.
[2017-04-08 16:00] VITALS: BP 165/81; PULSE 104; RESP 18; TEMP 96.9; O2SAT 93
[2017-04-08] MEDS: WARFARIN SOD 2.5 MG TAB PO SCH (17:15)
[2017-04-08 17:24] LABS: HEMOGLOBIN A1a 1.3 %; HEMOGLOBIN A1b 2.2 %; HEMOGLOBIN Ao 80.9 %; HEMOGLOBIN LA1C 2.9 %; HEMOGLOBIN P3 4.8 %
--- NOTE | 2017-04-08 19:04 | HHI.PR ---
Subjective Remarks Patient seen around 11 AM. Says he is feeling all right. Denies any chest pain or shortness of breath. Reports pain is controlled. Objective Vital Signs Date Time Temp Pulse Resp B/P (MAP) Pulse Ox O2 Delivery O2 Flow Rate FiO2 04/08/17 08:27 Room Air 04/08/17 04:30 96.9 86 18 161/80 (107) 95 04/08/17 00:25 97.0 64 18 137/61 (86) 95 04/07/17 20:56 96.7 65 18 160/82 (108) 96 04/07/17 20:00 96 Room Air I/O 04/07/17 04/07/17 04/07/17 04/08/17 04/08/17 04/08/17 07:00 15:00 23:00 07:00 15:00 23:00 Intake Total 930 ml 770 ml 240 ml 480 ml Output Total 1500 ml 400 ml 1500 ml Balance -570 ml 770 ml -160 ml -1020 ml Intake Oral 480 ml 720 ml 240 ml 480 ml IV Total 450 ml 50 ml Output Urine Total 1500 ml 400 ml 1500 ml # Voids 3 # Bowel Movements 0 1 0 1 Result Diagram: 04/07/17 0600 04/07/17 0605 Objective Remarks GENERAL: patient sitting up in bed. Appears comfortable. SKIN: Warm and dry. HEAD: Normocephalic. EYES: No scleral icterus. No injection or drainage. NECK: Supple, trachea midline. No JVD. CARDIOVASCULAR: Regular rate and rhythm without murmurs, gallops, or rubs. RESPIRATORY: Breath sounds equal bilaterally. No accessory muscle use. GASTROINTESTINAL: Abdomen soft, non-tender, nondistended. MUSCULOSKELETAL: No cyanosis, or edema. right foot in boot.distal capillary refill BACK: Nontender without obvious deformity. No CVA tenderness. A/P Assessment and Plan ==== 04/08/17 //Right foot diabetic foot ulcer. Discussed with infectious disease. Gram stain negative. This continue antibiotics. Arterial study ordered by podiatry. Can discharge if negative. = Patient with absent arterial waveform on arterial study. CT angiogram with poor blood flow right lower extremity. Consult vascular surgery. -Patient with previous history of stroke, word finding difficulty at baseline, questionable support system. I fear that if patient goes home with right lower extremity wound, absent blood flow with possible occluded right popliteal stent , high risk of limb loss. -MRSA positive on wound culture. Discussed with infectious disease. Hold off on antibiotics for now. Infectious disease we'll reevaluate tomorrow. // [place]: Creatinine 2.0, previous records from approx 3wks ago w/ Creatinine 0.8. Check U/a, IVF for hydration, repeat labs in am. = Resolved. Creatinine 1.06. // Tremor: Now resolved. Possibly physiologic tremor exacerbated by caffeine/ nicotine intake? Will monitor. Neuro checks. Propranolol if needed, Consult Neurology if symptoms recurrent. // Chronic Anticoagulation: On Coumadin, presumably secondary to h/o CVA. INR therapeutic at 2.6. Repeat INR in am. //Right foot diabetic foot ulcer. Discussed with infectious disease. Gram stain negative. This continue antibiotics. Arterial study ordered by podiatry. Can discharge if negative. MRI with bone edema, fracture, however no absolute indication of osteomyelitis. Follow-up arterial study. // DVT Prophylaxis: On Coumadin Discharge Planning pending vascular surgery consultation. Margarito Moeller MD Apr 08, 2017 19:04
[2017-04-08 20:00] VITALS: BP 153/66; PULSE 75; RESP 20; TEMP 98.1; O2SAT 95
[2017-04-09] VITALS: BP_SYST 134; PULSE 60; RESP 20; TEMP 98.6; O2SAT 94
[2017-04-09 04:00] VITALS: BP 142/88; PULSE 89; RESP 20; TEMP 97.8; O2SAT 95
[2017-04-09] MEDS: ACETAMINOPHEN/HYDROcodone 325 MG/10 MG TAB PO PRN ×3 (04:35→22:02)
[2017-04-09 07:40] VITALS: BP 149/74; PULSE 105; RESP 19; TEMP 95.8; O2SAT 90
[2017-04-09] MEDS: INSULIN ASPART SUPPLEMENTAL SCALE SQ SCH ×4 (08:00→21:00)
[2017-04-09] MEDS: DOCUSATE SODIUM 50 MG/SENNA 8.6 MG TAB PO SCH ×2 (08:12→21:00)
[2017-04-09] MEDS: SODIUM CHLORIDE 0.9% FLUSH 10 ML FLUSH IV FLUSH SCH ×2 (08:26→22:03)
--- NOTE | 2017-04-09 08:46 | HHI.PR ---
Addendum to Inpatient Note Additional Information GRAM STAIN Final 04/07/170937 NO WBC'S SEEN NO ORGANISMS SEEN WOUND CULTURE Preliminary 04/08/171403 HEAVY GROWTH S. AUREUS MRSA - SUSCEPTIBILITY TO FOLLOW HEAVY GROWTH NORMAL SKIN HERNANDEZ Pt is growing MRSA along with skin hernandez from an open long standing neuropathic ulcer In the abscence of s/o infx likely to represent colonisation; however MRSA will be significant if any clinical and/or radiological s/o infx present will alvaro podiatry Julia Harper Dr, MD Apr 09, 2017 08:46
[2017-04-09] MEDS: SODIUM CHLOR 0.9% 1000 ML INJ 1,000 ML IV SCH ×2 (09:16→19:16)
[2017-04-09 10:14] LABS: INTERNATIONAL NORMALIZED RATIO 1.2 RATIO; PROTHROMBIN TIME - PATIENT 13.7 SEC (9.8-11.6)
[2017-04-09 11:29] VITALS: BP 156/91; PULSE 66; RESP 16; TEMP 96.7; O2SAT 95
--- NOTE | 2017-04-09 12:47 | PD.VS.CON ---
History of Present Illness Chief Complaint: Right LE DM foot ulcer, fx Non palpable R DP/PT Hx of right popliteal graft Consult Requested by: Dr. Moeller History of Present Illness Mr. Valadez is a 71/W/M hx of smoking (55 years), HTN, COPD, uncontrolled DM and CVA Pt c/o right plantar mid foot ulcer for 2W after walking barefoot Pt is a poor historian but reported he had B LE "vein stripping" done in [place] several years ago (Natalie Weston) Past/Family/Social History Past Medical History HTN COPD DM CVA Past Surgical History Tonsillectomy Vein Stripping Social History + Etoh + smoking (daily for 55 years) No illicit drugs Family History neg (Natalie Weston) Home Medications Reported Medications [unknown] No Conflict Check 04/05/17 [gabapentin] No Conflict Check, 1 TAB PO TID 04/05/17 Oxycodone-Acetaminophen (Percocet) 5-325 mg Tab, 1 TAB PO Q4H Y for PAIN, TAB 0 Refills 04/05/17 Coded Allergies: No Known Allergies (Unverified , 04/05/17) Physical Exam Vitals/I&O Date Time Temp Pulse Resp B/P (MAP) Pulse Ox O2 Delivery O2 Flow Rate FiO2 04/09/17 11:29 96.7 66 16 156/91 (112) 95 04/09/17 07:40 95.8 105 19 149/74 (99) 90 04/09/17 04:00 97.8 89 20 142/88 (106) 95 04/09/17 00:00 98.6 60 20 134/ 94 04/08/17 20:00 98.1 75 20 153/66 (95) 95 04/08/17 19:19 Room Air 04/08/17 16:00 96.9 104 18 165/81 (109) 93 04/08/17 12:00 97.0 66 18 166/88 (114) 93 04/09/17 04/09/17 04/09/17 07:00 15:00 23:00 Intake Total 300 ml Output Total 250 ml Balance 50 ml Neuro: A&OX3 GCS15 Neck: No JVD distention Heart: +S1,S2 Lungs: CTA Vascular: Bilat palpable femoral pulses Non Palpable R DP/PT Non Palpable L DP/PT LE warm w/ motor intact Ulceration right plantar mid foot times several weeks (Natalie Weston) Vascular: phasic bilateral PTs. 2x2 cm shallow skin ulceration. no purulence/redness (Higinio Johnson DO) Laboratory Tests Test 04/09/17 07:46 04/09/17 09:47 Creatinine 0.99 Estimat Glomerular Filtration Rate 75 Prothrombin Time 13.7 Prothromb Time International Ratio 1.2 Date/Time Source Procedure Growth Status 04/07/17 05:10 Wound Foot Gram Stain - Final Complete 04/07/17 05:10 Wound Culture - Final S. Aureus Mrsa Complete Last 48 hours Impressions Aorta w/Runoff CTA 04/08/17 0000 Signed Impressions: Service Date/Time: Saturday, April 08, 2017 11:33 - CONCLUSION: 1. Possible inflow stenosis on the right involving the right common iliac artery. Distal runoff is not evaluated secondary dense calcification of the bypass itself is intact. 2. Nonspecific retrocrural adenopathy. PET/CT scan is recommended to further evaluation if clinically indicated. 3. Cholelithiasis Roberto Durant MD (Natalie Weston) Assessment and Plan Assessment: (1) Foot ulcer, right Status: Acute (2) PAD (peripheral artery disease) Status: Chronic Plan Mr Valadez is a 71/M with a hx of a non healing right foot ulceration,non palpable R DP/PT and Hx of right popliteal graft (done several years ago per pt) . CTA/MOISES reviewed - Possible inflow stenosis on the right involving the right common iliac artery/There is a 3.4 cm dominant aortic aneurysm/There is a patent heavily calcified right femoral popliteal bypass graft. Plan Discussed CTA/MOISES results w/ pt Discussed R LE Angiogram w/ patient for recanalization Pt agrees w/ plan Pt scheduled for a R LE Angiogram on 04/11/17 w/ Dr. Alex LOMBARDO [facility]/[place] [phone] (Natalie Weston) Plan I examined the patient and discussed his hx. Has had hx of bilateral leg bypasses for PAD with use of leg and right arm vein performed in [place]. He has expressive aphasia from previous CVA but has a good understanding of his medical and surgical hx. May be inflow stenosis although has easily palpable pulse. Difficult to ascertain specific details of his right bypass by CTA. Will have him undergo an arteriogram this thurs (first available time) to fully evaluate his arterial anatomy. Higinio Johnson DO, CHANCE (Higinio Johnson DO) Natalie Weston Apr 09, 2017 12:47 Higinio Johnson DO Apr 09, 2017 13:05
[2017-04-09] MEDS: WARFARIN SOD 2.5 MG TAB PO SCH (16:12)
[2017-04-09 16:40] VITALS: BP 144/73; PULSE 67; RESP 18; TEMP 97.4
[2017-04-09] MEDS ORDERED: PHARMACY ORDERED LAB ONE (16:45)
--- NOTE | 2017-04-09 19:23 | HHI.PR ---
Subjective Remarks Patient seen this morning around 10 AM. Says he's feeling all right. Denies any pain. Denies any chest pain or shortness of breath. Objective Vital Signs Date Time Temp Pulse Resp B/P (MAP) Pulse Ox O2 Delivery O2 Flow Rate FiO2 04/09/17 18:52 Room Air 04/09/17 17:16 18 04/09/17 16:40 97.4 67 18 144/73 (96) 04/09/17 11:29 96.7 66 16 156/91 (112) 95 04/09/17 07:40 95.8 105 19 149/74 (99) 90 04/09/17 04:00 97.8 89 20 142/88 (106) 95 04/09/17 00:00 98.6 60 20 134/ 94 04/08/17 20:00 98.1 75 20 153/66 (95) 95 I/O 04/08/17 04/08/17 04/08/17 04/09/17 04/09/17 04/09/17 07:00 15:00 23:00 07:00 15:00 23:00 Intake Total 480 ml 600 ml 300 ml 700 ml Output Total 1500 ml 250 ml Balance -1020 ml 600 ml 50 ml 700 ml Intake Oral 480 ml 600 ml 300 ml 700 ml Output Urine Total 1500 ml 250 ml # Voids 4 3 # Bowel Movements 1 1 0 Result Diagram: 04/07/17 0600 04/09/17 0746 Objective Remarks GENERAL: patient sitting up in bed. Appears comfortable.exam unchanged today. SKIN: Warm and dry. HEAD: Normocephalic. EYES: No scleral icterus. No injection or drainage. NECK: Supple, trachea midline. No JVD. CARDIOVASCULAR: Regular rate and rhythm without murmurs, gallops, or rubs. RESPIRATORY: Breath sounds equal bilaterally. No accessory muscle use. GASTROINTESTINAL: Abdomen soft, non-tender, nondistended. MUSCULOSKELETAL: No cyanosis, or edema. right foot in boot.distal capillary refill BACK: Nontender without obvious deformity. No CVA tenderness. A/P Assessment and Plan ==== 04/09/17 //Right ischemic foot ulcer. //With diabetes. -Holding antibiotics as per infectious disease. MRSA positive likely colonization. Discussed with vascular surgery. Anticoagulation as per vascular surgery. Planning for angiogram on . // [place]: Creatinine 2.0, previous records from approx 3wks ago w/ Creatinine 0.8. Check U/a, IVF for hydration, repeat labs in am. = Resolved. Creatinine 1.06. // Tremor: Now resolved. Possibly physiologic tremor exacerbated by caffeine/ nicotine intake? Will monitor. Neuro checks. Propranolol if needed, Consult Neurology if symptoms recurrent. // Chronic Anticoagulation: On Coumadin, presumably secondary to h/o CVA. -Anticoagulation as per vascular surgery. //Right foot diabetic foot ulcer. Discussed with infectious disease. Gram stain negative. This continue antibiotics. Arterial study ordered by podiatry. Can discharge if negative. MRI with bone edema, fracture, however no absolute indication of osteomyelitis. Follow-up arterial study. // DVT Prophylaxis: On Coumadin Discharge Planning pending vascular surgery angiogram on . Margarito Moeller MD Apr 09, 2017 19:23
[2017-04-09] MEDS ORDERED: ZOLPIDEM TARTRATE 5 MG TAB PO ONE (20:30)
[2017-04-09 20:50] VITALS: BP 155/81; PULSE 66; RESP 16; TEMP 97.4; O2SAT 97
[2017-04-10 00:35] VITALS: BP 144/59; PULSE 64; RESP 18; TEMP 97.4; O2SAT 92
[2017-04-10] MEDS: ACETAMINOPHEN/HYDROcodone 325 MG/10 MG TAB PO PRN ×4 (03:47→22:01)
[2017-04-10] MEDS: SODIUM CHLOR 0.9% 1000 ML INJ 1,000 ML IV SCH ×2 (05:16→23:18)
[2017-04-10 07:55] VITALS: BP 146/81; PULSE 67; RESP 19; TEMP 96.3; O2SAT 93
[2017-04-10] MEDS: INSULIN ASPART SUPPLEMENTAL SCALE SQ SCH ×4 (08:00→23:17)
[2017-04-10] MEDS: DOCUSATE SODIUM 50 MG/SENNA 8.6 MG TAB PO SCH ×2 (09:00→21:00)
[2017-04-10] MEDS: SODIUM CHLORIDE 0.9% FLUSH 10 ML FLUSH IV FLUSH SCH ×2 (09:00→21:00)
--- NOTE | 2017-04-10 10:23 | PD.VS.PN ---
Subjective Subjective/Hospital Course Afebrile 71/M Pt alert w/o complaints Objective Vitals/I&O Date Time Temp Pulse Resp B/P (MAP) Pulse Ox O2 Delivery O2 Flow Rate FiO2 04/10/17 07:55 96.3 67 19 146/81 (102) 93 04/10/17 00:35 97.4 64 18 144/59 (87) 92 04/09/17 20:50 97.4 66 16 155/81 (105) 97 04/09/17 18:52 Room Air 04/09/17 17:16 18 04/09/17 16:40 97.4 67 18 144/73 (96) 04/09/17 11:29 96.7 66 16 156/91 (112) 95 04/10/17 04/10/17 04/10/17 07:00 15:00 23:00 Intake Total 480 ml Balance 480 ml Physical Exam A&OX3,NAD,GCS15 Bilat palpable femoral pulses Non Palpable R DP/PT Non Palpable L DP/PT LE warm w/ motor intact Ulceration right plantar mid foot times several weeks Laboratory Date/Time Source Procedure Growth Status 04/07/17 05:10 Wound Foot Gram Stain - Final Complete 04/07/17 05:10 Wound Culture - Final S. Aureus Mrsa Complete Assessment and Plan Assessment: (1) Foot ulcer, right Status: Acute (2) PAD (peripheral artery disease) Status: Chronic Plan I examined the patient and discussed his hx. Has had hx of bilateral leg bypasses for PAD with use of leg and right arm vein performed in [place]. He has expressive aphasia from previous CVA but has a good understanding of his medical and surgical hx. May be inflow stenosis although has easily palpable pulse. Difficult to ascertain specific details of his right bypass by CTA. Will have him undergo an arteriogram this thurs (first available time) to fully evaluate his arterial anatomy. Higinio Johnson DO, FACS Plan Hold Coumadin PT/INR ordered If INR is at a therapeutic level will proceed with RIGHT LE angio tomorrow am Reviewed procedure w/ patient and questions were answered R LE Angiogram Consent signed and placed in the chart Plan d/w Dr. Moeller NPO after midnight Natalie LOMBARDO [facility]/[email or web address] [phone] Natalie Weston Apr 10, 2017 10:23
[2017-04-10 11:22] VITALS: BP 151/83; PULSE 78; RESP 19; TEMP 96.7; O2SAT 93
[2017-04-10] MEDS: WARFARIN SOD 2.5 MG TAB PO SCH (11:47)
[2017-04-10 11:50] LABS: INTERNATIONAL NORMALIZED RATIO 1.2 RATIO; PROTHROMBIN TIME - PATIENT 12.9 SEC (9.8-11.6)
[2017-04-10 16:00] VITALS: BP 167/89; PULSE 66; RESP 18; TEMP 96.6; O2SAT 96
[2017-04-10 19:10] VITALS: BP 147/76; PULSE 65; RESP 18; TEMP 97.6
--- NOTE | 2017-04-10 22:05 | HHI.PR ---
Subjective Remarks Patient seen this morning around 11 AM. Says he is feeling well. Denies any chest pain or shortness of breath. Denies constipation. Objective Vital Signs Date Time Temp Pulse Resp B/P (MAP) Pulse Ox O2 Delivery O2 Flow Rate FiO2 04/10/17 19:10 97.6 65 18 147/76 (99) 04/10/17 18:07 18 04/10/17 16:00 96.6 66 18 167/89 (115) 96 04/10/17 11:22 96.7 78 19 151/83 (105) 93 04/10/17 07:55 96.3 67 19 146/81 (102) 93 04/10/17 00:35 97.4 64 18 144/59 (87) 92 I/O 04/09/17 04/09/17 04/09/17 04/10/17 04/10/17 04/10/17 07:00 15:00 23:00 07:00 15:00 23:00 Intake Total 300 ml 700 ml 480 ml 480 ml 550 ml Output Total 250 ml Balance 50 ml 700 ml 480 ml 480 ml 550 ml Intake Oral 300 ml 700 ml 480 ml 480 ml 550 ml Output Urine Total 250 ml # Voids 3 1 2 6 # Bowel Movements 0 0 0 0 Result Diagram: 04/07/17 0600 04/09/17 0746 Objective Remarks GENERAL: patient sitting up in bed. Appears comfortable.exam again unchanged. SKIN: Warm and dry. HEAD: Normocephalic. EYES: No scleral icterus. No injection or drainage. NECK: Supple, trachea midline. No JVD. CARDIOVASCULAR: Regular rate and rhythm without murmurs, gallops, or rubs. RESPIRATORY: Breath sounds equal bilaterally. No accessory muscle use. GASTROINTESTINAL: Abdomen soft, non-tender, nondistended. MUSCULOSKELETAL: No cyanosis, or edema. right foot in boot.distal capillary refill BACK: Nontender without obvious deformity. No CVA tenderness. A/P Assessment and Plan ==== 04/10/17 //Right ischemic foot ulcer. //With diabetes. --Discussed with vascular surgery. INR 1.2 today. Hold Coumadin. Plan for angiogram tomorrow. Appreciate assistance. //Diabetes. Blood sugars elevated in the 200s. Will add Levemir twice daily. Continue to monitor. // [place]: Creatinine 2.0 on admission, previous records from approx 3wks ago w/ Creatinine 0.8. Check U/a, IVF for hydration, repeat labs in am. = Resolved. Creatinine 1.06. // Tremor: Now resolved. Possibly physiologic tremor exacerbated by caffeine/ nicotine intake? Will monitor. Neuro checks. Propranolol if needed, Consult Neurology if symptoms recurrent. // Chronic Anticoagulation: On Coumadin, presumably secondary to h/o CVA. -Anticoagulation as per vascular surgery. //Right foot diabetic foot ulcer. -Holding antibiotics as per infectious disease. MRSA positive likely colonization. Discharge Planning pending vascular surgery angiogram tomorrow. Margarito Moeller MD Apr 10, 2017 22:05
[2017-04-10] MEDS ORDERED: INSULIN DETEMIR 100 UNITS/ML VIAL SQ SCH (22:15)
[2017-04-10] MEDS ORDERED: ZOLPIDEM TARTRATE 5 MG TAB PO ONE (22:45)
[2017-04-10] MEDS: INSULIN DETEMIR 100 UNITS/ML VIAL SQ SCH (23:17)
[2017-04-11 00:09] VITALS: BP 158/66; PULSE 65; RESP 18; TEMP 97.9; O2SAT 95
[2017-04-11 04:09] VITALS: BP 170/80; PULSE 64; RESP 18; TEMP 98.7; O2SAT 95
[2017-04-11] MEDS ORDERED: SODIUM CHLORID 0.9% 500 ML IV PRN (05:30)
[2017-04-11] MEDS ORDERED: POVIDONE IODINE 5% (ANTISEPSIS KIT) 4 APPLICATIONS EACH NARE PRN (05:30)
[2017-04-11] MEDS ORDERED: METOPROLOL TARTRATE 25 MG TAB PO PRN (05:30)
[2017-04-11] MEDS ORDERED: CHLORHEXIDINE GLUCONATE 2 % 1 PACK (2 CLOTHS) TOPICAL PRN (05:30)
[2017-04-11] MEDS ORDERED: LACTATED RINGER'S 1000 ML IV PRN (05:30)
[2017-04-11 07:59] VITALS: BP 143/82; PULSE 69; RESP 19; TEMP 97.6; O2SAT 93
[2017-04-11] MEDS: INSULIN ASPART SUPPLEMENTAL SCALE SQ SCH ×4 (08:00→22:41)
[2017-04-11 08:05] LABS: AUTOMATED NEUTROPHIL # 5.7 TH/MM3 (1.8-7.7); BASOPHIL # 0.1 TH/MM3 (0-0.2); BASOPHIL % 0.6 % (0.0-2.0); EOSINOPHIL # 0.3 TH/MM3 (0-0.4); EOSINOPHIL % 3.2 % (0.0-4.0); HEMATOCRIT 35.8 % (39.0-51.0); HEMO FLAGS DIFF FINAL; LYMPH % 16.4 % (9.0-44.0); LYMPHOCYTE # 1.3 TH/MM3 (1.0-4.8); MEAN CELL VOLUME 83.4 FL (80.0-100.0); MEAN CORPUSCULAR HEMOGLOBIN 28.8 PG (27.0-34.0); MEAN CORPUSCULAR HGB CONC 34.6 % (32.0-36.0); MONO % 9.9 % (0.0-8.0); NEUT % 69.9 % (16.0-70.0); PLATELET COUNT 185 TH/MM3 (150-450); RED BLOOD COUNT 4.29 MIL/MM3 (4.50-5.90); RED CELL DISTRIBUTION WIDTH 14.9 % (11.6-17.2); WHITE BLOOD COUNT 8.2 TH/MM3 (4.0-11.0)
[2017-04-11 08:07] LABS: INTERNATIONAL NORMALIZED RATIO 1.1 RATIO; PROTHROMBIN TIME - PATIENT 12.4 SEC (9.8-11.6)
[2017-04-11 08:28] LABS: BICARBONATE 26.1 MEQ/L (21.0-32.0); MAGNESIUM 1.8 MG/DL (1.5-2.5); POTASSIUM 3.4 MEQ/L (3.5-5.1)
[2017-04-11] MEDS: INSULIN DETEMIR 100 UNITS/ML VIAL SQ SCH ×3 (09:00→22:41)
[2017-04-11] MEDS: DOCUSATE SODIUM 50 MG/SENNA 8.6 MG TAB PO SCH ×2 (09:00→21:00)
[2017-04-11] MEDS: SODIUM CHLORIDE 0.9% FLUSH 10 ML FLUSH IV FLUSH SCH ×2 (09:00→21:00)
[2017-04-11] MEDS ORDERED: POTASSIUM CHLORIDE 20 MEQ CONTROLLED RELEASE TAB PO ONE (11:00)
[2017-04-11] MEDS: SODIUM CHLOR 0.9% 1000 ML INJ 1,000 ML IV SCH ×2 (11:16→21:16)
[2017-04-11] MEDS ORDERED: HEPARIN-NS/PF INJ 1,000 ML ONE (11:22)
[2017-04-11] MEDS ORDERED: HEPARIN SODIUM - IV 10,000 UNITS/10 ML VIAL ONE (11:23)
[2017-04-11] MEDS ORDERED: NITROGLYCERIN INJ 5 ML ONE ×2 (11:23→13:01)
[2017-04-11] MEDS ORDERED: MIDAZOLAM HCL 5 MG/5 ML VIAL ONE (11:23)
[2017-04-11] MEDS ORDERED: MIDAZOLAM HCL 2 MG/2 ML VIAL ONE ×2 (12:00→13:07)
[2017-04-11] MEDS ORDERED: PROTAMINE SULFATE 50 MG/5 ML VIAL ONE (13:26)
--- NOTE | 2017-04-11 13:45 | PD.VS.PN ---
Subjective Subjective/Hospital Course Afebrile 71/M Pt alert w/o complaints status post peripheral catheterization with recanalization of right below knee popliteal artery. Objective Vitals/I&O Date Time Temp Pulse Resp B/P (MAP) Pulse Ox O2 Delivery O2 Flow Rate FiO2 04/11/17 07:59 97.6 69 19 143/82 (102) 93 04/11/17 04:09 98.7 64 18 170/80 (110) 95 04/11/17 00:09 97.9 65 18 158/66 (96) 95 04/10/17 19:10 97.6 65 18 147/76 (99) 04/10/17 18:07 18 04/10/17 16:00 96.6 66 18 167/89 (115) 96 04/11/17 04/11/17 04/11/17 07:00 15:00 23:00 Intake Total 0 ml Output Total 900 ml Balance -900 ml Laboratory Laboratory Tests Test 04/11/17 07:06 White Blood Count 8.2 Red Blood Count 4.29 Hemoglobin 12.4 Hematocrit 35.8 Mean Corpuscular Volume 83.4 Mean Corpuscular Hemoglobin 28.8 Mean Corpuscular Hemoglobin Concent 34.6 Red Cell Distribution Width 14.9 Platelet Count 185 Mean Platelet Volume 8.0 Neutrophils (%) (Auto) 69.9 Lymphocytes (%) (Auto) 16.4 Monocytes (%) (Auto) 9.9 Eosinophils (%) (Auto) 3.2 Basophils (%) (Auto) 0.6 Neutrophils # (Auto) 5.7 Lymphocytes # (Auto) 1.3 Monocytes # (Auto) 0.8 Eosinophils # (Auto) 0.3 Basophils # (Auto) 0.1 CBC Comment DIFF FINAL Differential Comment Prothrombin Time 12.4 Prothromb Time International Ratio 1.1 Blood Urea Nitrogen 13 Creatinine 0.86 Random Glucose 132 Albumin 2.8 Calcium Level 8.8 Phosphorus Level 3.6 Magnesium Level 1.8 Sodium Level 137 Potassium Level 3.4 Chloride Level 103 Carbon Dioxide Level 26.1 Anion Gap 8 Estimat Glomerular Filtration Rate 88 Date/Time Source Procedure Growth Status 04/07/17 05:10 Wound Foot Gram Stain - Final Complete 04/07/17 05:10 Wound Culture - Final S. Aureus Mrsa Complete Assessment and Plan Assessment: (1) Foot ulcer, right Status: Acute (2) PAD (peripheral artery disease) Status: Chronic Plan Patient status post right lower extremity arteriogram with recanalization of the right popliteal artery distal to previously placed bypass at an outside hospital. Plan for follow up in one week. Will observe for groin management. Suspect increased blood supply should be enough to heal denuded area on bottom of foot as long as patient practices pressure precautions and stop smoking.. Coumadin can be restarted on 04/12 if without hematoma. Higinio Johnson DO, FACS [employer]ist [employer] Vascular [employer] /Higinio Hilliard DO Apr 11, 2017 13:45
--- NOTE | 2017-04-11 15:10 | MA ---
cc: HIGINIO NARAYANAN DATE: 04/11/2017 PREOPERATIVE DIAGNOSIS Critical limb ischemia with a diabetic wound on the plantar aspect of his right foot. SURGEON: Higinio Narayanan DO. PROCEDURE: 1. Pelvic arteriogram. 1. Selective right lower short arteriogram. 2. Balloon angioplasty with a 3 mm angiosculpt cutting balloon of the below-knee popliteal artery. 3. Balloon angioplasty with a 2.5 mm Medtronic x 120 mm Medtronic balloon to the anterior tibial artery and posterior tibial artery. IV FLUIDS More than 1 liter. ESTIMATED BLOOD LOSS Minimal URINE OUTPUT Not calculated. COMPLICATIONS None DISPOSITION To PACU PROCEDURE The patient's left groin was prepped and draped in sterile fashion after being under moderate sedation. I got access to the left common femoral artery with an 18 gauge needle exchanged for a 5-Kazakh sheath, it is an Omni flush catheter in the abdominal aorta. I shot in the distal abdominal aorta, shot pelvic oblique arteriograms. I then selected out the right external iliac artery and shot a selective right lower extremity arteriogram. 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 The bilateral common iliac artery stents were widely patent. The patient is internal and external iliac arteries appeared to be patent. The right common femoral profunda femoral artery was patent. The right SFA was occluded. There was a bypass from the right common femoral artery to an area that appeared to be somewhat aneurysmal to the below-knee popliteal artery. It should be noted that there was a chronic total occlusion really with minimal flow in the tibioperoneal trunk, below-knee popliteal artery at the anastomosis to the peroneal trunk, proximal AT and posterior tibial and peroneal arteries. With the initial shots there was really minimal flow below the mid calf. So at that point we did heparinized the patient to an ACT of greater than 200. I did cross, across the posterior tibial artery lesion with a choice BLOCK[employer] C[employer]ENS wire and a quick cross catheter performed balloon angioplasty with a 2.5 mm x 12 cm balloon, that extended from the tibial proximally. Then I used a angiosculpt balloon for the below knee pop and tibioperoneal region that was a 4 mm x 4 cm balloon. Then I selected out the right anterior tibial artery and performed balloon angioplasty with a 2.5-mm x 120-mm Kinder[employer] Roboticstronic balloon. After I performed balloon angioplasty is three areas, it is noted there was still some residual narrowing of the popliteal artery to the anterior tibial artery but it did appear to be patent. There was still retrograde flow to the popliteal artery as we saw initially. Now we were able to see good blood flow in the posterior tibial distribution at the level of the ankle and dorsalis pedis artery though we could not see at the beginning of the case. Based on these findings we removed our sheath and applied pressure to the left groin. The patient tolerated procedure well. DO Henrry Kumar /1:34 PM /2:03 PM
[2017-04-11] MEDS ORDERED: CLOPIDOGREL 300 MG TAB ONE (15:21)
[2017-04-11 17:00] VITALS: BP 178/93; PULSE 67; RESP 19; TEMP 95.6; O2SAT 93
[2017-04-11 17:56] VITALS: O2SAT 93
[2017-04-11] MEDS: ACETAMINOPHEN/HYDROcodone 325 MG/10 MG TAB PO PRN ×2 (18:21→21:55)
[2017-04-11 19:00] VITALS: BP 190/90; PULSE 97; RESP 17; TEMP 96; O2SAT 95
[2017-04-11] MEDS ORDERED: ZOLPIDEM TARTRATE 5 MG TAB PO ONE (21:15)
[2017-04-11] MEDS ORDERED: ENALAPRILAT 1.25 MG/ML VIAL IV PUSH PRN (23:30)
--- NOTE | 2017-04-11 23:33 | HHI.PR ---
Subjective Remarks Patient seen this afternoon after procedure. Says he is feeling all right. Denies any pain. Denies any chest pain or shortness of breath. Denies any nausea or vomiting. Objective Vital Signs Date Time Temp Pulse Resp B/P (MAP) Pulse Ox O2 Delivery O2 Flow Rate FiO2 04/11/17 19:00 96.0 97 17 190/90 (123) 95 04/11/17 17:56 93 21 04/11/17 17:00 95.6 67 19 178/93 (121) 93 04/11/17 15:10 Room Air 04/11/17 07:59 97.6 69 19 143/82 (102) 93 04/11/17 04:09 98.7 64 18 170/80 (110) 95 04/11/17 00:09 97.9 65 18 158/66 (96) 95 I/O 04/11/17 04/11/17 04/11/17 04/12/17 04/12/17 04/12/17 07:00 15:00 23:00 07:00 15:00 23:00 Intake Total 0 ml 0 ml 480 ml Output Total 900 ml 300 ml Balance -900 ml 0 ml 180 ml Intake Oral 0 ml 0 ml 480 ml Output Urine Total 900 ml 300 ml # Voids 2 2 # Bowel Movements 0 0 Result Diagram: 04/11/1770504/11/17705 Objective Remarks GENERAL: patient lying flat in bed Appears comfortable.exam again unchanged. SKIN: Warm and dry. HEAD: Normocephalic. EYES: No scleral icterus. No injection or drainage. NECK: Supple, trachea midline. No JVD. CARDIOVASCULAR: Regular rate and rhythm without murmurs, gallops, or rubs. RESPIRATORY: Breath sounds equal bilaterally. No accessory muscle use. GASTROINTESTINAL: Abdomen soft, non-tender, nondistended. MUSCULOSKELETAL: No cyanosis, or edema. right foot in boot.distal capillary refill BACK: Nontender without obvious deformity. No CVA tenderness. A/P Assessment and Plan ==== 04/11/17 //Right ischemic foot ulcer. //With diabetes. Status post right lower extremity revascularization. Appreciate vascular surgery assistance. //Diabetes. Blood sugars elevated in the 200s. Continue Levemir twice daily. Continue to monitor. //Hypokalemia. Potassium 3.4. Replaced. // CLEMENTINA: Creatinine 2.0 on admission, previous records from approx 3wks ago w/ Creatinine 0.8. Check U/a, IVF for hydration, repeat labs in am. = Resolved. Creatinine 1.06. // Tremor: Now resolved. Possibly physiologic tremor exacerbated by caffeine/ nicotine intake? Will monitor. Neuro checks. Propranolol if needed, Consult Neurology if symptoms recurrent. // Chronic Anticoagulation: On Coumadin, presumably secondary to h/o CVA. -Anticoagulation as per vascular surgery. //Right foot diabetic foot ulcer. -Holding antibiotics as per infectious disease. MRSA positive likely colonization. Discharge Planning likely discharge home tomorrow pending vascular surgery clearance. Margarito Moeller MD Apr 11, 2017 23:33
[2017-04-12] VITALS (8 sets, daily range): BP systolic 138–163; BP diastolic 64–88; PULSE 64–86; RESP 17–19; TEMP 96.7–98; O2SAT 94–99
[2017-04-12 07:09] LABS: INTERNATIONAL NORMALIZED RATIO 1.1 RATIO; PROTHROMBIN TIME - PATIENT 12.1 SEC (9.8-11.6)
[2017-04-12] MEDS: SODIUM CHLOR 0.9% 1000 ML INJ 1,000 ML IV SCH ×2 (07:16→23:08)
[2017-04-12] MEDS: INSULIN ASPART SUPPLEMENTAL SCALE SQ SCH ×4 (08:00→21:13)
[2017-04-12] MEDS: DOCUSATE SODIUM 50 MG/SENNA 8.6 MG TAB PO SCH ×2 (09:00→21:05)
--- NOTE | 2017-04-12 09:34 | HHI.FF ---
Face to Face Verification Diagnosis: (1) Foot ulcer, right (2) PAD (peripheral artery disease) Physical Therapy Order: Evaluate and Treat Home Health Nursing Order: Diabetic education Wound care and dressing changes Nursing assessment with vital signs Instructions: right foot daily dressing changes, monitoring. home health nurse for medication management. I have seen patient Geo Valadez on 04/12/17. My clinical findings support the need for the requested home health care services because: Limited ability to care for self I certify that my clinical findings support that this patient is homebound because: Unsafe to leave home unassisted Margarito Moeller MD Apr 12, 2017 09:33
[2017-04-12] MEDS ORDERED: COZA25TA PO (09:37)
[2017-04-12] MEDS ORDERED: COUM2.5T PO (09:37)
[2017-04-12] MEDS ORDERED: ASPI-99 PO (09:37)
[2017-04-12] MEDS ORDERED: ENOX100P SQ (10:09)
[2017-04-12] MEDS: ASPIRIN EC 81 MG TABEC PO SCH (10:12)
[2017-04-12] MEDS: SODIUM CHLORIDE 0.9% FLUSH 10 ML FLUSH IV FLUSH SCH ×2 (10:13→21:05)
[2017-04-12] MEDS: ACETAMINOPHEN/HYDROcodone 325 MG/10 MG TAB PO PRN ×3 (10:13→21:13)
[2017-04-12] MEDS: INSULIN DETEMIR 100 UNITS/ML VIAL SQ SCH (10:13)
[2017-04-12] MEDS ORDERED: LOSARTAN 25 MG TAB PO ONE (10:15)
[2017-04-12] MEDS ORDERED: GLIP1TAB49 PO (10:20)
--- NOTE | 2017-04-12 10:57 | PD.VS.PN ---
Subjective POD #: 1 Procedure(s): right lower extremity arteriogram with recanalization of the right popliteal artery distal Subjective/Hospital Course Afebrile 71/M Pt w/ c/o moderate bleeding when stood up this am from L groin No acute active bleeding presently Dressing to L groin c/d/i Mild swelling to L groin Pt denies pain Objective Vitals/I&O Date Time Temp Pulse Resp B/P (MAP) Pulse Ox O2 Delivery O2 Flow Rate FiO2 04/12/17 10:22 94 04/12/17 08:00 98.0 66 18 140/75 (96) 94 04/12/17 06:09 97.4 68 17 142/69 (93) 94 04/12/17 00:00 97.3 65 18 138/70 (92) 95 04/11/17 19:00 96.0 97 17 190/90 (123) 95 04/11/17 17:56 93 21 04/11/17 17:00 95.6 67 19 178/93 (121) 93 04/11/17 15:10 Room Air 04/12/17 04/12/17 04/12/17 07:00 15:00 23:00 Intake Total 480 ml Balance 480 ml Exam: GENERAL: A&OX3,NAD,GCS15 SKIN: Warm and dry. Left groin non tender with mild swelling MUSCULOSKELETAL: No cyanosis, or edema. L/R + biphasic DP/PT LE warm with motor intact Laboratory Laboratory Tests Test 04/12/17 06:15 Prothrombin Time 12.1 Prothromb Time International Ratio 1.1 Date/Time Source Procedure Growth Status 04/07/17 05:10 Wound Foot Gram Stain - Final Complete 04/07/17 05:10 Wound Culture - Final S. Aureus Mrsa Complete Assessment and Plan Assessment: (1) Foot ulcer, right Status: Acute (2) PAD (peripheral artery disease) Status: Chronic Plan Patient status post right lower extremity arteriogram with recanalization of the right popliteal artery distal to previously placed bypass at an outside hospital. Plan for follow up in one week. Plan Ordered U/S Continue to observe for groin management. Apply pressure dressing to L groin Natalie [facility]/[employer] [phone] Natalie Weston Apr 12, 2017 10:57
--- NOTE | 2017-04-12 12:04 | RADRPT ---
EXAM DATE/TIME: 04/12/2017 11:23 [place] COMPARISON: No previous studies available for comparison. INDICATIONS : Post left groin catheterization. MEDICAL HISTORY : Hypertension. Chronic obstructive pulmonary disease. Methicillin-resistant Staphylococcus aureus. Maranda betic neuropathy. Arthritis. Diabetes. SURGICAL HISTORY : Tonsillectomy. Vein stripping. Cardiac cath. ENCOUNTER: Initial ACUITY: 1 day PAIN SCORE: 7/10 LOCATION: Left groin. AREA EVALUATED: Left groin. FINDINGS: The common femoral vessels are intact. Flow is present in artery and vein. No pseudoaneurysm is ident ified. There is no evidence of hematoma. CONCLUSION: Unremarkable exam Braden Jernigan MD on April 12, 2017 at 12:02 Board Certified Radiologist. This report was verified electronically.
[2017-04-12] MEDS ORDERED: METHOCARBAMOL 500 MG TAB PO ONE (12:30)
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
[2017-04-12] MEDS ORDERED: ZOLPIDEM TARTRATE 5 MG TAB PO ONE (19:45)
[2017-04-12] MEDS ORDERED: INSULIN DETEMIR 100 UNITS/ML VIAL SQ SCH (21:00)
[2017-04-13 01:00] VITALS: PULSE 64
[2017-04-13] MEDS: ACETAMINOPHEN/HYDROcodone 325 MG/10 MG TAB PO PRN ×2 (01:22→05:27)
[2017-04-13 03:10] VITALS: BP 130/62; PULSE 60; RESP 18; TEMP 96.8; O2SAT 96
[2017-04-13 06:48] LABS: INTERNATIONAL NORMALIZED RATIO 1.1 RATIO
[2017-04-13 08:00] VITALS: BP 143/79; PULSE 76; RESP 18; TEMP 96.6; O2SAT 96
[2017-04-13] MEDS: INSULIN ASPART SUPPLEMENTAL SCALE SQ SCH ×2 (08:00→13:08)
[2017-04-13 08:30] VITALS: PULSE 64
[2017-04-13] MEDS: SODIUM CHLORIDE 0.9% FLUSH 10 ML FLUSH IV FLUSH SCH (08:44)
[2017-04-13] MEDS: ASPIRIN EC 81 MG TABEC PO SCH (08:44)
[2017-04-13] MEDS: DOCUSATE SODIUM 50 MG/SENNA 8.6 MG TAB PO SCH (08:44)
[2017-04-13] MEDS ORDERED: LOSARTAN 25 MG TAB PO SCH (09:00)
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
[2017-04-13 12:00] VITALS: BP 139/77; PULSE 63; RESP 18; TEMP 96.2; O2SAT 92
[2017-04-13] MEDS ORDERED: PRAVASTATIN SOD 40 MG TAB PO SCH (12:15)
[2017-04-13 12:42] LABS: HDL CHOLESTEROL 37.4 MG/DL (40.0-60.0)
[2017-04-13] MEDS: SODIUM CHLOR 0.9% 1000 ML INJ 1,000 ML IV SCH (13:09)
--- NOTE | 2017-04-13 13:20 | MB ---
cc: FOX PIZARRO DATE OF CONSULTATION: 04/13/2017 REASON FOR CONSULTATION: Mr. Valadez is a 71 year-old white male with history of hypertension, COPD disease, diabetes mellitus, CVA and smoking. He was admitted for bilateral upper extremity tremors. He was also found to have acute renal insufficiency. He has not had any chest pain. He has mild shortness of breath. He was found to have significant peripheral vascular disease. He was found critical limb ischemia with diabetic wound on the plantar aspect of the right foot. He underwent angioplasty of the anterior tibial artery pulses and posterior tibial artery and popliteal artery by Dr. Johnson with a good result. He will was found to be bradycardic in 1930s. His EKG was consistent with chronic atrial flutter with controlled ventricular response and is unchanged from admission EKG. He had been on anticoagulation with warfarin which was stopped for the procedure. PAST MEDICAL HISTORY Positive for hypertension COPD Diabetes mellitus CVA. (the patient denies any history of heart disease.). CURRENT MEDICATIONS 1. Losartan 2. Insulin. 3. Aspirin. ALLERGIES None. SOCIAL HISTORY The patient is a smoker. He also drinks alcohol. FAMILY HISTORY: Family history is positive for heart disease in his father. REVIEW OF SYSTEMS The review of systems is otherwise negative. PHYSICAL EXAMINATION VITAL SIGNS: Blood pressure 143/79 pulse 76 and regular. HEENT: Negative. No bruits. LUNGS: Clear. HEART: Regular with no murmur, gallop or rub. ABDOMEN: Soft. No bruits. EXTREMITIES: Normal pulses. NEUROLOGIC: Exam is grossly nonfocal. RADIOLOGIC: EKG was reviewed and showed atrial flutter with block, left axis, right bundle-branch block and left anterior fascicular block. LABORATORY DATA Hemoglobin 412.4, potassium 3.4, creatinine 0.8, AST and ALT normal. DIAGNOSIS: 1. Atrial flutter with controlled ventricular response. 2. Perivascular disease, status post peripheral intervention. 3. Hypertension. 4. Diabetes mellitus. 5. History of cerebrovascular accident. 6. Chronic obstructive pulmonary disease. 7. Smoking. 8. Renal insufficiency. DISPOSITION: Mr. Valadez was found to have persistent atrial flutter with controlled ventricular response. He has had bradycardia during the night but not during her during daytime. RECOMMENDATIONS: I recommend to continue his current medical program for hypertension, diabetes mellitus. Recommend to also recommend aggressive therapy for dyslipidemia with LDL below 70. Recommend to resume warfarin as possible. [facility] and also, [facility] an [facility] after discharge. Bradycardia and atrial flutter is currently asymptomatic. MD ZAIRA Martinez/argenis /11:56 AM /12:50 PM
--- NOTE | 2017-04-13 14:17 | EKG ---
Date Performed: 04/13/2017 Time Performed: 11:15:46 PTAGE: 71 years EKG: ATRIAL FLUTTER/TACHYCARDIA RIGHT BUNDLE BRANCH BLOCK LEFT ANTERIOR FASCICULAR BLOCK ABNORMA L ECG PREVIOUS TRACING : 04/05/2017 21.02 DOCTOR: Stephen Irwin Interpretating Date/Time 04/13/2017 14:14:15
[2017-04-13] MEDS ORDERED: SENN1TAB PO (15:00)
[2017-04-13] MEDS ORDERED: ASPI-99 PO (15:00)
[2017-04-13] MEDS ORDERED: PRAV40TA PO (15:00)
[2017-04-13] MEDS ORDERED: COZA25TA PO (15:00)
[2017-04-13] MEDS ORDERED: COUM2.5T PO (15:00)
[2017-04-13] MEDS ORDERED: LEVEMIR SQ (15:00)
--- NOTE | 2017-04-13 15:03 | HHI.DS ---
Discharge Summary Admission Date Apr 06, 2017 at 01:13 Discharge Date: Apr 13, 2017 Admitting Diagnosis acute renal insufficiency (1) CLEMENTINA (acute kidney injury) ICD Code: N17.9 - Acute kidney failure, unspecified (2) Tremor ICD Code: R25.1 - Tremor, unspecified (3) Chronic anticoagulation ICD Code: Z79.01 - USP (current) use of anticoagulants (4) PAD (peripheral artery disease) ICD Code: I73.9 - Peripheral vascular disease, unspecified Status: Chronic (5) Foot ulcer, right ICD Code: L97.519 - Non-pressure chronic ulcer of other part of right foot with unspecified severity Status: Acute Procedures PROCEDURE: 1. Pelvic arteriogram. 1. Selective right lower short arteriogram. 2. Balloon angioplasty with a 3 mm angiosculpt cutting balloon of the below-knee popliteal artery. 3. Balloon angioplasty with a 2.5 mm Medtronic x 120 mm Medtronic balloon to the anterior tibial artery and posterior tibial artery. Brief History - From Admission This is a 71-year-old male with a PMH of HTN, COPD, DM, CVA and Chronic Anticoagulation on Coumadin who was brought to the ER by EMS secondary to acute onset of bilateral upper extremity tremors. Patient is a poor historian, however states he was drinking Pepsi at a bar when he had sudden onset of bilateral upper extremity tremors, reportedly lasting approximately one hour. Tremors witnessed by EMS. No history of similar symptoms in the past. Denies any recent fever, chills or sick contacts. No lid lag, facial droop, slurred speech or weakness. Denies any history of Parkinson's. On arrival, BP 108/56, HR 64, O2 sat 98% on RA, Afebrile. CBC unremarkable except for anemia, hemoglobin 12.0. Creatinine 2.00, no previous records in our system, however records from from 3wks ago w/ Creatinine 0.8. INR 2.6. Alcohol is negative. CT Head with remote left MCA infarct and encephalomalacia, no acute findings. Tremor currently resolved. CBC/BMP: 04/11/17 0706 04/13/17 0530 Significant Findings Laboratory Tests Test 04/11/17 07:06 04/12/17 06:15 04/13/17 05:30 Red Blood Count 4.29 MIL/MM3 (4.50-5.90) Hemoglobin 12.4 GM/DL (13.0-17.0) Hematocrit 35.8 % (39.0-51.0) Monocytes (%) (Auto) 9.9 % (0.0-8.0) Prothrombin Time 12.4 SEC (9.8-11.6) 12.1 SEC (9.8-11.6) 12.0 SEC (9.8-11.6) Random Glucose 132 MG/DL (74-106) Albumin 2.8 GM/DL (3.4-5.0) Potassium Level 3.4 MEQ/L (3.5-5.1) Estimat Glomerular Filtration Rate 88 ML/MIN (>89) HDL Cholesterol 37.4 MG/DL (40.0-60.0) PE at Discharge GENERAL: Not in distress SKIN: Warm and dry. No active bleeding left groin. NECK: Supple, trachea midline. No JVD. CARDIOVASCULAR: Regular rate and occasionally irregular rhythm, no bradycardia. RESPIRATORY: Breath sounds equal bilaterally. No accessory muscle use. GASTROINTESTINAL: Abdomen soft, non-tender, nondistended. MUSCULOSKELETAL: No cyanosis, or edema. right foot in boots BACK: Nontender without obvious deformity. No CVA tenderness. Alert, awake, oriented 3, no focal deficits. Hospital Course 71-year-old male with history of PAD who initially came in for tremor which resolved on hospital day one, but who remain in the hospital for right lower extremity diabetic/vascular foot ulcer. Culture was done but clinically was not infected, infectious disease was consulted, recommendation is to hold off on antibiotics. Imaging showed bone edema, vascular surgery was consulted, status post right lower extremity revascularization. However after the procedure, patient had minor bleeding from the groin site. Ultrasound was negative. The plan is to continue the patient on aspirin and restart Coumadin per vascular surgery. Patient will follow-up with his primary care physician regarding the tremors and vascular surgery. Overnight, patient had bradycardia , cardiology was consulted. Patient was found to have persistent atrial flutter with controlled ventricular response. Recommendation is to resume warfarin, and start statins. Patient will be discharged home on the above medications including Levemir for blood sugar control. Pt Condition on Discharge: Good Discharge Disposition: Disch w/ Home Health Serv Discharge Time: > 30 minutes Discharge Instructions DIET: Follow Instructions for: Diabetic Diet Activities you can perform: Regular-No Restrictions Other Activity Instructions: wear boot on right foot. keep elevated. Follow up Referrals: PCP Follow-up - 2-3 Days with [facility] - 1 Week Vascular Surgery - 1 Week with Higinio Johnson V. DO New Medications: Aspirin DR (Adult Aspirin EC Low Strength) 81 Mg Tabec 81 MG PO DAILY for blood thinner, #30 TAB Insulin Detemir Inj (Levemir Inj) 1,000 unit/ 10 ML Vial 10 UNITS SQ HS for diabetes, #30 INJECTION Do not mix with any other Insulin. Losartan (Cozaar) 25 Mg Tab 25 MG PO DAILY for HTN, #30 TAB Pravastatin (Pravachol) 40 Mg Tab 40 MG PO DAILY for cholesterol, #30 TAB Sennosides-Docusate Sodium (Senna Plus 8.6-50 mg) 8.6 Mg-50 Mg Tab 1 TAB PO BID for constipation, #30 TAB Warfarin (Coumadin) 2.5 Mg Tab 2.5 MG PO DAILY@1600 for blood thinner, #30 TAB Continued Medications: Oxycodone-Acetaminophen (Percocet) 5-325 mg Tab 1 TAB PO Q4H PRN for PAIN, TAB 0 Refills [gabapentin] () 1 TAB PO TID Discontinued Medications: [unknown] () García Lawler MD Apr 13, 2017 15:03
== END 2017-04-13 16:21 | disposition home or self-care (01) | DRG 982 ==
LOC: NEPC 20:53 → NEDA 04-06 01:13 → N06B 04-06 02:24
PROVIDERS: ADMIT Hospitalist; ATTEND Hospitalist
PROC: 047R3ZZ Dilation of Right Posterior Tibial Artery, Percutaneous Approach (ICD-10-PCS; 2017-04-11)
PROC: 047M3ZZ Dilation of Right Popliteal Artery, Percutaneous Approach (ICD-10-PCS; 2017-04-11)
PROC: B41F1ZZ Fluoroscopy of Right Lower Extremity Arteries using Low Osmolar Contrast (ICD-10-PCS; 2017-04-11)
PROC: 047P3ZZ Dilation of Right Anterior Tibial Artery, Percutaneous Approach (ICD-10-PCS; principal; 2017-04-11 11:00)
DX: E11.621 Type 2 diabetes mellitus with foot ulcer (principal); L97.419 Non-pressure chronic ulcer of right heel and midfoot with unspecified severity; N17.9 Acute kidney failure, unspecified; E11.40 Type 2 diabetes mellitus with diabetic neuropathy, unspecified; E11.610 Type 2 diabetes mellitus with diabetic neuropathic arthropathy; I48.92 Unspecified atrial flutter; I45.2 Bifascicular block; G93.89 Other specified disorders of brain; J44.9 Chronic obstructive pulmonary disease, unspecified; I69.320 Aphasia following cerebral infarction; R25.1 Tremor, unspecified; Z96.643 Presence of artificial hip joint, bilateral; Z95.5 Presence of coronary angioplasty implant and graft; I25.10 Atherosclerotic heart disease of native coronary artery without angina pectoris; Z79.01 Long term (current) use of anticoagulants; E86.0 Dehydration; I10 Essential (primary) hypertension; D64.9 Anemia, unspecified; F17.200 Nicotine dependence, unspecified, uncomplicated; R00.1 Bradycardia, unspecified; E78.5 Hyperlipidemia, unspecified; E87.6 Hypokalemia; I69.398 Other sequelae of cerebral infarction
CPT/HCPCS: 0238T; 37224; 37228; 70450; 71010; 73630; 73720; 75625; 75635; 76937; 80048; 80053; 80061; 80069; 80307; 81001; 82565; 82948; 83036; 83735; 83880; 85002; 85025; 85610; 85652; 86403; 87070; 87147; 87186; 87205; 93005; 93923; 93926; A9579; C1725; C1751; C1769; C1887; C1893; C2623; J1644; J1815; J2250; J2543; J2720; J3010; J3370; J7030; J7040; Q9967